=== PATIENT | male | born 1960 | race American Indian/Alaskan Native ===

== ENCOUNTER 2016-11-28 04:49 | Inpatient (IN) | payer MEDICARE, MEDICAID ==
[~2016-11-28] VITALS: Ht 182.9 cm; Wt 80.7 kg
[~2016-11-28 04:49] MED LIST: ACET325T14 PO; ALBU2.5V NPPB; ALPR0.254 PO; AMLO5TAB2 PO; ASPI-621 PO; ATOR80TA75 PO; BACI28.42 TP; BENZ1TAB61 PO; CLIN300C93 PO; DOCU100C8 PO; ESCI10TA PO; FAMO20TA7 PO; FOLI0.4T2 PO; GLIM1TAB PO; GLIP5TAB10 PO; HYDR-3138 PO; HYDR-3240 PO; INSU100C SQ-INSULIN; INSU100I18 SC; INSU100I29 SC; INSU100V8 SQ; LACT1CAP24 PO; LEVO500T33 PO; LISI2.5T PO; MAGN400T7 PO; METF10002 PO; METO-93 PO; METO25TA35 PO; METO25TA91 PO; MV-M1TAB3 PO; NICO1PAT5 TD; PANT40TA5 PO; PRAS10TA4 PO; SUCR1TAB26 PO; THIA100T27 PO; TRAZ50TA18 PO; ZIPR40CA2 PO; ZIPR40CA3 PO; bp med; insulin
[2016-11-28] MEDS ORDERED: NITROGLYCERIN SINGLE TAB 0.4 MG SL PRN (06:00)
[2016-11-28] MEDS ORDERED: ASPIRIN 81 MG TABLET CHEW PO ONE (06:00)
[2016-11-28] MEDS ORDERED: SODIUM CHLORIDE FLUSH 10ML SYR IVF ONE (06:00)
[2016-11-28] MEDS ORDERED: NITROGLYCERIN SINGLE TAB 0.4 MG SL ONE (06:20)
[2016-11-28] MEDS ORDERED: ASPIRIN 81 MG TABLET CHEW ONE (06:21)
[2016-11-28 06:40] LABS: BLOOD UREA NITROGEN 11 mg/dL (7-18)
[2016-11-28 06:47] LABS: ASPARTATE AMINO TRANSFERASE 19 U/L (15-37)
[2016-11-28] MEDS ORDERED: SODIUM CHLORIDE FLUSH 10ML SYR IVF PRN (07:30)
[2016-11-28] MEDS ORDERED: MORPHINE SULFATE 4 MG/ML, 1ML IVPush PRN (08:00)
[2016-11-28] MEDS ORDERED: LORazepam 2 MG/ML, 1ML IVPush PRN (08:00)
[2016-11-28] MEDS ORDERED: ONDANSETRON 2MG/ML, 2ML IVP PRN (08:00)
[2016-11-28] MEDS ORDERED: ENOXAPARIN 40 MG/0.4 ML ONE (08:04)
[2016-11-28] MEDS: ENOXAPARIN 40 MG/0.4 ML SQ SCH (08:07)
[2016-11-28] MEDS: INSULIN DETEMIR 100 UNITS/ML, PEN SQ-INSULIN SCH ×2 (08:30→23:42)
[2016-11-28 08:49] LABS: IS PT STATUS REG ER OR PRE ER? YES
[2016-11-28] MEDS ORDERED: FAMOTIDINE 20 MG TABLET PO SCH (09:00)
[2016-11-28] MEDS: BENZTROPINE 1 MG TABLET PO SCH ×2 (09:00→21:00)
[2016-11-28] MEDS: CITALOPRAM 10 MG TABLET PO SCH (10:11)
[2016-11-28] MEDS: MULTIVITAMINS/MINERALS TABLET PO SCH (10:13)
[2016-11-28] MEDS: ASPIRIN 81 MG TABLET EC PO SCH (10:13)
[2016-11-28] MEDS: FAMOTIDINE 20 MG TABLET PO SCH ×2 (10:13→23:37)
[2016-11-28] MEDS: ZIPRASIDONE 40MG CAPSULE PO SCH ×2 (10:14→23:37)
[2016-11-28] MEDS: DOCUSATE 100 MG CAPSULE PO SCH ×2 (10:14→23:08)
[2016-11-28] MEDS: THIAMINE 100MG TABLET PO SCH (10:15)
[2016-11-28] MEDS: MAGNESIUM OXIDE 400 MG TABLET PO SCH (10:18)
[2016-11-28] MEDS: FOLIC ACID 1 MG TABLET PO SCH (10:18)
[2016-11-28] MEDS: AMLODIPINE 5 MG TABLET PO SCH (10:19)
[2016-11-28] MEDS: LISINOPRIL 5 MG TABLET PO SCH (10:20)
[2016-11-28] MEDS: METOPROLOL SUCCINATE 50 MG TAB.ER.24H PO SCH (10:21)
[2016-11-28] MEDS: PRASUGREL 10 MG TABLET PO SCH (10:22)
[2016-11-28 12:18] VITALS: BP 150/84
[2016-11-28] MEDS: INSULIN ASPART 100 UNITS/ML, PEN SQ-INSULIN SCH ×3 (13:00→23:39)
[2016-11-28 14:24] LABS: IS PT STATUS REG ER OR PRE ER? NO
[2016-11-28 18:27] VITALS: BP 158/92
[2016-11-28 19:48] LABS: DAU SCREEN DISCLAIMER
[2016-11-28] MEDS: ATORVASTATIN 80 MG TABLET PO SCH (23:07)
[2016-11-28] MEDS: TRAZODONE 50MG TABLET PO SCH (23:08)
[2016-11-28] MEDS: SODIUM CHLORIDE FLUSH 10ML SYR IVF SCH ×2 (23:08→23:38)
[2016-11-29 01:33] VITALS: BP 131/81
[2016-11-29 04:56] LABS: HEMOGLOBIN 15.8 g/dL (13.7-18.0)
[2016-11-29 05:22] LABS: BLOOD UREA NITROGEN 15 mg/dL (7-18)
[2016-11-29] MEDS: INSULIN ASPART 100 UNITS/ML, PEN SQ-INSULIN SCH ×4 (07:00→21:00)
[2016-11-29 07:09] VITALS: BP 134/85
[2016-11-29] MEDS: INSULIN DETEMIR 100 UNITS/ML, PEN SQ-INSULIN SCH ×2 (08:30→20:30)
[2016-11-29] MEDS: MAGNESIUM OXIDE 400 MG TABLET PO SCH (09:19)
[2016-11-29] MEDS: MULTIVITAMINS/MINERALS TABLET PO SCH (09:20)
[2016-11-29] MEDS: METOPROLOL SUCCINATE 50 MG TAB.ER.24H PO SCH (09:20)
[2016-11-29] MEDS: FOLIC ACID 1 MG TABLET PO SCH (09:21)
[2016-11-29] MEDS: HYDROcodone/APAP 5/325 TABLET PO PRN ×3 (09:21→22:09)
[2016-11-29] MEDS: BENZTROPINE 1 MG TABLET PO SCH ×2 (09:22→22:08)
[2016-11-29] MEDS: DOCUSATE 100 MG CAPSULE PO SCH ×2 (09:23→21:36)
[2016-11-29] MEDS: CITALOPRAM 10 MG TABLET PO SCH (09:24)
[2016-11-29] MEDS: AMLODIPINE 5 MG TABLET PO SCH (09:24)
[2016-11-29] MEDS: FAMOTIDINE 20 MG TABLET PO SCH ×2 (09:24→21:37)
[2016-11-29] MEDS: ZIPRASIDONE 40MG CAPSULE PO SCH ×2 (09:24→21:37)
[2016-11-29] MEDS: THIAMINE 100MG TABLET PO SCH (09:25)
[2016-11-29] MEDS: LISINOPRIL 5 MG TABLET PO SCH (09:26)
[2016-11-29] MEDS: PRASUGREL 10 MG TABLET PO SCH (09:27)
[2016-11-29] MEDS: ENOXAPARIN 40 MG/0.4 ML SQ SCH (09:28)
[2016-11-29] MEDS: SODIUM CHLORIDE FLUSH 10ML SYR IVF SCH ×2 (09:28→21:36)
[2016-11-29] MEDS: ASPIRIN 81 MG TABLET EC PO SCH (09:28)
[2016-11-29 16:10] VITALS: BP 111/73
[2016-11-29 18:50] VITALS: BP 121/76
[2016-11-29 19:43] VITALS: BP 122/87
[2016-11-29] MEDS: TRAZODONE 50MG TABLET PO SCH (21:36)
[2016-11-29] MEDS: ATORVASTATIN 80 MG TABLET PO SCH (21:37)
[2016-11-30 02:13] VITALS: BP 115/74
[2016-11-30 05:31] LABS: HEMOGLOBIN 15.5 g/dL (13.7-18.0)
[2016-11-30 05:43] LABS: BLOOD UREA NITROGEN 14 mg/dL (7-18)
[2016-11-30] MEDS: HYDROcodone/APAP 5/325 TABLET PO PRN ×4 (06:22→23:28)
[2016-11-30 07:27] VITALS: BP 126/76
[2016-11-30] MEDS: INSULIN ASPART 100 UNITS/ML, PEN SQ-INSULIN SCH ×4 (08:26→21:00)
[2016-11-30] MEDS: SODIUM CHLORIDE FLUSH 10ML SYR IVF SCH ×2 (08:27→21:58)
[2016-11-30] MEDS ORDERED: REGADENOSON 0.4 MG/5 ML SYRINGE ONE (08:27)
[2016-11-30] MEDS: INSULIN DETEMIR 100 UNITS/ML, PEN SQ-INSULIN SCH ×2 (08:27→20:30)
[2016-11-30] MEDS: FOLIC ACID 1 MG TABLET PO SCH (08:28)
[2016-11-30] MEDS: MULTIVITAMINS/MINERALS TABLET PO SCH (08:28)
[2016-11-30] MEDS: MAGNESIUM OXIDE 400 MG TABLET PO SCH (08:28)
[2016-11-30] MEDS: CITALOPRAM 10 MG TABLET PO SCH (08:29)
[2016-11-30] MEDS: DOCUSATE 100 MG CAPSULE PO SCH ×2 (08:29→21:59)
[2016-11-30] MEDS: METOPROLOL SUCCINATE 50 MG TAB.ER.24H PO SCH (08:29)
[2016-11-30] MEDS: AMLODIPINE 5 MG TABLET PO SCH (08:30)
[2016-11-30] MEDS: FAMOTIDINE 20 MG TABLET PO SCH ×2 (08:30→21:59)
[2016-11-30] MEDS: ZIPRASIDONE 40MG CAPSULE PO SCH ×2 (08:30→21:59)
[2016-11-30] MEDS: THIAMINE 100MG TABLET PO SCH (08:30)
[2016-11-30] MEDS: LISINOPRIL 5 MG TABLET PO SCH (08:31)
[2016-11-30] MEDS: BENZTROPINE 1 MG TABLET PO SCH ×2 (09:00→21:00)
[2016-11-30] MEDS: ASPIRIN 81 MG TABLET EC PO SCH (09:39)
[2016-11-30] MEDS: ENOXAPARIN 40 MG/0.4 ML SQ SCH (09:41)
[2016-11-30] MEDS: PRASUGREL 10 MG TABLET PO SCH (09:43)
[2016-11-30 13:06] VITALS: BP 130/82
[2016-11-30] MEDS ORDERED: SODIUM CHLORIDE 0.9% 1,000 ML IV ONE (13:42)
[2016-11-30 18:22] VITALS: BP 145/79
[2016-11-30] MEDS: TRAZODONE 50MG TABLET PO SCH (21:59)
[2016-11-30] MEDS: ATORVASTATIN 80 MG TABLET PO SCH (21:59)
[2016-12-01 02:05] VITALS: BP 131/81
[2016-12-01 06:33] LABS: BLOOD UREA NITROGEN 16 mg/dL (7-18)
[2016-12-01 06:35] LABS: HEMOGLOBIN 15.9 g/dL (13.7-18.0)
[2016-12-01] MEDS: INSULIN DETEMIR 100 UNITS/ML, PEN SQ-INSULIN SCH ×2 (08:30→20:30)
[2016-12-01 08:34] VITALS: BP 120/80
[2016-12-01] MEDS: INSULIN ASPART 100 UNITS/ML, PEN SQ-INSULIN SCH ×4 (09:30→21:00)
[2016-12-01] MEDS: ENOXAPARIN 40 MG/0.4 ML SQ SCH (09:31)
[2016-12-01] MEDS: BENZTROPINE 1 MG TABLET PO SCH ×2 (09:51→21:00)
[2016-12-01] MEDS: CITALOPRAM 10 MG TABLET PO SCH (09:51)
[2016-12-01] MEDS: HYDROcodone/APAP 5/325 TABLET PO PRN ×2 (09:51→14:22)
[2016-12-01] MEDS: SODIUM CHLORIDE FLUSH 10ML SYR IVF SCH ×2 (09:51→20:59)
[2016-12-01] MEDS: FOLIC ACID 1 MG TABLET PO SCH (09:52)
[2016-12-01] MEDS: THIAMINE 100MG TABLET PO SCH (09:52)
[2016-12-01] MEDS: AMLODIPINE 5 MG TABLET PO SCH (09:52)
[2016-12-01] MEDS: FAMOTIDINE 20 MG TABLET PO SCH ×2 (09:52→21:00)
[2016-12-01] MEDS: DOCUSATE 100 MG CAPSULE PO SCH ×2 (09:52→21:00)
[2016-12-01] MEDS: MAGNESIUM OXIDE 400 MG TABLET PO SCH (09:52)
[2016-12-01] MEDS: METOPROLOL SUCCINATE 50 MG TAB.ER.24H PO SCH (09:52)
[2016-12-01] MEDS: LISINOPRIL 5 MG TABLET PO SCH (09:52)
[2016-12-01] MEDS: PRASUGREL 10 MG TABLET PO SCH (09:53)
[2016-12-01] MEDS: ZIPRASIDONE 40MG CAPSULE PO SCH ×2 (09:53→21:00)
[2016-12-01] MEDS: ASPIRIN 81 MG TABLET EC PO SCH (09:53)
[2016-12-01] MEDS: MULTIVITAMINS/MINERALS TABLET PO SCH (09:56)
[2016-12-01 13:42] VITALS: BP 107/63
[2016-12-01] MEDS ORDERED: FENTANYL PF 100 MCG/2ML ONE (15:55)
[2016-12-01] MEDS ORDERED: MIDAZOLAM 1 MG/ML, 5ML ONE (15:55)
[2016-12-01] MEDS ORDERED: DIPHENHYDRAMINE 50 MG/ML, 1ML ONE (15:55)
[2016-12-01] MEDS ORDERED: PRASUGREL 10 MG TABLET ONE (15:56)
[2016-12-01] MEDS ORDERED: BIVALIRUDIN 250 MG ONE (15:56)
[2016-12-01] MEDS ORDERED: HEPARIN 1,000 UNITS/ML, 10ML ONE (15:56)
[2016-12-01] MEDS ORDERED: LIDOCAINE 2%, 20ML ONE (15:56)
[2016-12-01] MEDS ORDERED: VERAPAMIL 2.5 MG/ML, 2ML ONE (15:56)
[2016-12-01 20:00] VITALS: BP 122/85
[2016-12-01] MEDS: TRAZODONE 50MG TABLET PO SCH (20:59)
[2016-12-01] MEDS: ATORVASTATIN 80 MG TABLET PO SCH (21:00)
[2016-12-01 23:17] VITALS: BP 91/71
[2016-12-02 02:27] VITALS: BP 101/71
[2016-12-02 06:03] LABS: HEMOGLOBIN 16.6 g/dL (13.7-18.0)
[2016-12-02 06:18] LABS: BLOOD UREA NITROGEN 26 mg/dL (7-18)
[2016-12-02 06:53] VITALS: BP 112/78
[2016-12-02] MEDS: INSULIN ASPART 100 UNITS/ML, PEN SQ-INSULIN SCH (07:22)
[2016-12-02] MEDS: INSULIN DETEMIR 100 UNITS/ML, PEN SQ-INSULIN SCH (07:44)
[2016-12-02 08:54] VITALS: BP 102/62
[2016-12-02] MEDS: SODIUM CHLORIDE FLUSH 10ML SYR IVF SCH (08:55)
[2016-12-02] MEDS: PRASUGREL 10 MG TABLET PO SCH (08:55)
[2016-12-02] MEDS: HYDROcodone/APAP 5/325 TABLET PO PRN (08:55)
[2016-12-02] MEDS: ENOXAPARIN 40 MG/0.4 ML SQ SCH (08:55)
[2016-12-02] MEDS: BENZTROPINE 1 MG TABLET PO SCH (08:56)
[2016-12-02] MEDS: METOPROLOL SUCCINATE 50 MG TAB.ER.24H PO SCH (08:57)
[2016-12-02] MEDS: MAGNESIUM OXIDE 400 MG TABLET PO SCH (08:57)
[2016-12-02] MEDS: ASPIRIN 81 MG TABLET EC PO SCH (08:57)
[2016-12-02] MEDS: DOCUSATE 100 MG CAPSULE PO SCH (08:57)
[2016-12-02] MEDS: FOLIC ACID 1 MG TABLET PO SCH (08:57)
[2016-12-02] MEDS: THIAMINE 100MG TABLET PO SCH (08:57)
[2016-12-02] MEDS: LISINOPRIL 5 MG TABLET PO SCH (08:57)
[2016-12-02] MEDS: AMLODIPINE 5 MG TABLET PO SCH (08:58)
[2016-12-02] MEDS: ZIPRASIDONE 40MG CAPSULE PO SCH (08:58)
[2016-12-02] MEDS: MULTIVITAMINS/MINERALS TABLET PO SCH (08:58)
[2016-12-02] MEDS: FAMOTIDINE 20 MG TABLET PO SCH (08:58)
[2016-12-02] MEDS: CITALOPRAM 10 MG TABLET PO SCH (09:05)
[2016-12-02] MEDS ORDERED: GLIP5TAB10 PO (10:50)
[2016-12-02] MEDS ORDERED: BENZ1TAB61 PO (10:50)
[2016-12-02] MEDS ORDERED: METO-93 PO (10:50)
[2016-12-02] MEDS ORDERED: AMLO5TAB2 PO (10:50)
[2016-12-02] MEDS ORDERED: TRAZ50TA18 PO (10:50)
[2016-12-02] MEDS ORDERED: ZIPR40CA3 PO (10:50)
[2016-12-02] MEDS ORDERED: ESCI10TA PO (10:50)
[2016-12-02] MEDS ORDERED: LISI2.5T PO (10:50)
[2016-12-02] MEDS ORDERED: ATOR80TA75 PO (10:50)
[2016-12-02] MEDS ORDERED: ASPI-621 PO (10:50)
[2016-12-02] MEDS ORDERED: INSU100V8 SQ (10:50)
[2016-12-02] MEDS ORDERED: PRAS10TA4 PO (10:50)
== END 2016-12-02 12:15 | disposition home or self-care (01) | DRG 287 ==
LOC: ED 07:22 → EDIP 07:23 → ED 07:39 → 5SO 11:56 → DCLOUNGE 12-02 11:19
PROVIDERS: ADMIT Internal Medicine; ATTEND Internal Medicine
PROC: 4A023N7 Measurement of Cardiac Sampling and Pressure, Left Heart, Percutaneous Approach (ICD-10-PCS; principal; 2016-12-01)
PROC: B2111ZZ Fluoroscopy of Multiple Coronary Arteries using Low Osmolar Contrast (ICD-10-PCS; 2016-12-01)
PROC: B2151ZZ Fluoroscopy of Left Heart using Low Osmolar Contrast (ICD-10-PCS; 2016-12-01)
DX: I25.110 Atherosclerotic heart disease of native coronary artery with unstable angina pectoris (principal); R45.851 Suicidal ideations; I10 Essential (primary) hypertension; E11.9 Type 2 diabetes mellitus without complications; D72.829 Elevated white blood cell count, unspecified; F17.210 Nicotine dependence, cigarettes, uncomplicated; E78.00 Pure hypercholesterolemia, unspecified; F10.20 Alcohol dependence, uncomplicated; F32.9 Major depressive disorder, single episode, unspecified; J45.909 Unspecified asthma, uncomplicated; E78.5 Hyperlipidemia, unspecified; F20.9 Schizophrenia, unspecified; I11.9 Hypertensive heart disease without heart failure; Z91.19 Patient's noncompliance with other medical treatment and regimen; Z59.0 Homelessness; Z95.5 Presence of coronary angioplasty implant and graft; Z88.0 Allergy status to penicillin; Z91.14 Patient's other noncompliance with medication regimen
CPT/HCPCS: 36415; 71010; 78452; 80048; 80053; 80061; 80307; 82962; 83036; 83880; 84443; 84484; 85025; 85610; 85730; 93005; 93017; 93306; 93458; 99285; C1760; C1894; J0583; J1644; J1650; J1815; J2250; J2785; J3010; J3490; A9502; C9898; J1200; J7030; Q9967

== ENCOUNTER 2017-01-25 03:20 | Emergency (ER) | payer MEDICAID, MEDICARE ==
[2017-01-25] MEDS ORDERED: SODIUM CHLORIDE FLUSH 10ML SYR IVF ONE (04:00)
[2017-01-25] MEDS ORDERED: ASPIRIN 81 MG TABLET CHEW PO ONE (04:00)
[2017-01-25] MEDS ORDERED: ASPIRIN 81 MG TABLET CHEW ONE (04:21)
[2017-01-25] MEDS ORDERED: SODIUM CHLORIDE 0.9% 1,000ML IVBOLUS ONE (04:30)
[2017-01-25 05:00] LABS: BLOOD UREA NITROGEN 15 mg/dL (7-18)
[2017-01-25 05:05] LABS: ASPARTATE AMINO TRANSFERASE 21 U/L (15-37)
[2017-01-25 05:06] LABS: IS PT STATUS REG ER OR PRE ER? YES
[2017-01-25 06:01] VITALS: BP 141/87
== END 2017-01-25 06:20 | disposition home or self-care (01) ==
LOC: ED 05:27
DX: I10 Essential (primary) hypertension (principal); R07.89 Other chest pain; R05 Cough; R73.9 Hyperglycemia, unspecified; E78.00 Pure hypercholesterolemia, unspecified; I11.9 Hypertensive heart disease without heart failure; J45.909 Unspecified asthma, uncomplicated; M54.5 Low back pain; G89.29 Other chronic pain; E11.40 Type 2 diabetes mellitus with diabetic neuropathy, unspecified; F10.20 Alcohol dependence, uncomplicated
CPT/HCPCS: 36415; 71010; 80053; 80307; 81001; 82010; 84484; 85025; 93005; 96360; 99285; J7030

== ENCOUNTER 2017-07-05 22:07 | Emergency (ER) | payer MEDICARE ==
[~2017-07-05] VITALS: Ht 170.2 cm; Wt 86.2 kg
[~2017-07-05 22:07] MED LIST changes: +ATOR-2 PO; -ATOR80TA75 PO; +CLIN300C8 PO; -CLIN300C93 PO; +DOCU100C33 PO; -DOCU100C8 PO; -HYDR-3138 PO; +HYDR-3237 PO; -LEVO500T33 PO; +LEVO500T47 PO; +NICO-487 TD; -NICO1PAT5 TD; -SUCR1TAB26 PO; +SUCR1TAB33 PO
[2017-07-05 22:20] VITALS: BP 137/82
== END 2017-07-06 01:06 | disposition home or self-care (01) ==
LOC: ED 22:42
DX: R45.851 Suicidal ideations (principal); F43.22 Adjustment disorder with anxiety; J45.909 Unspecified asthma, uncomplicated; I10 Essential (primary) hypertension; F32.9 Major depressive disorder, single episode, unspecified; F20.9 Schizophrenia, unspecified; F17.200 Nicotine dependence, unspecified, uncomplicated; F10.20 Alcohol dependence, uncomplicated; E78.00 Pure hypercholesterolemia, unspecified; G89.29 Other chronic pain
CPT/HCPCS: 99284

== ENCOUNTER 2017-08-31 10:57 | Emergency (ER) | payer MEDICARE ==
[~2017-08-31] VITALS: Ht 170.2 cm; Wt 84.7 kg
[2017-08-31 11:06] VITALS: BP 143/83
== END 2017-08-31 13:20 | disposition home or self-care (01) ==
LOC: ED 13:14
DX: M26.622 Arthralgia of left temporomandibular joint (principal); E11.65 Type 2 diabetes mellitus with hyperglycemia; E78.00 Pure hypercholesterolemia, unspecified; I10 Essential (primary) hypertension; F10.20 Alcohol dependence, uncomplicated
CPT/HCPCS: 70100; 99284

== ENCOUNTER 2017-10-11 09:13 | Emergency (ER) | payer MEDICARE ==
[~2017-10-11] VITALS: Ht 170.2 cm; Wt 79.3 kg
[2017-10-11 09:18] VITALS: BP 124/79
[2017-10-11] MEDS ORDERED: KETOROLAC 30 MG/1 ML ONE (09:47)
[2017-10-11] MEDS ORDERED: KETOROLAC 30 MG/1 ML IM ONE (10:00)
== END 2017-10-11 10:28 | disposition home or self-care (01) ==
LOC: ED 10:21
DX: M26.622 Arthralgia of left temporomandibular joint (principal); E11.65 Type 2 diabetes mellitus with hyperglycemia; E78.00 Pure hypercholesterolemia, unspecified; I10 Essential (primary) hypertension; G89.29 Other chronic pain
CPT/HCPCS: 82962; 96372; 99283; J1885

== ENCOUNTER 2018-01-19 07:43 | Inpatient (IN) | payer MEDICARE, MEDICAID ==
[~2018-01-19] VITALS: Ht 182.9 cm; Wt 81.6 kg
[2018-01-19 08:30] LABS: BASOPHILS # (AUTO) 0.04 x10^3/uL (0-0.1); BASOPHILS % (AUTO) 1 % (0-1); EOSINOPHILS # (AUTO) 0.11 x10^3/uL (0-0.4); EOSINOPHILS % (AUTO) 1 % (1-7); LYMPHOCYTES # (AUTO) 1.69 x10^3/uL (1-3.4); LYMPHOCYTES % (AUTO) 19 % (22-44); MD NO; MEAN CORPUSCULAR HEMOGLOBIN 31.8 pg (27.5-34.5); MEAN CORPUSCULAR VOLUME 93.7 fL (81-97); MEAN PLATELET VOLUME 6.9 fL (7.4-10.4); MONOCYTES # (AUTO) 0.49 x10^3/uL (0.2-0.8); MONOCYTES % (AUTO) 5 % (2-9); NEUTROPHILS # (AUTO) 6.76 x10^3/uL (1.8-6.8); NEUTROPHILS % (AUTO) 74 % (42-75); PLATELET COUNT 294 x10^3/uL (130-400); RED BLOOD COUNT 4.95 x10^6/uL (4.38-5.82)
[2018-01-19] MEDS ORDERED: ASPIRIN 81 MG TABLET CHEW PO ONE (08:30)
[2018-01-19 08:36] LABS: ALANINE AMINOTRANSFERASE 31 U/L (12-78); ALBUMIN 3.5 g/dL (3.4-5.0); ANION GAP 8 mmol/L (5-15); CALCIUM 8.4 mg/dL (8.5-10.1); CHLORIDE 103 mmol/L (98-107)
[2018-01-19 08:40] LABS: ALKALINE PHOSPHATASE 101 U/L (45-117); BILIRUBIN,TOTAL 0.5 mg/dL (0.2-1.0); TOTAL PROTEIN 7.1 g/dL (6.4-8.2); TROPONIN I < 0.015 ng/mL (0.000-0.045)
[2018-01-19] MEDS ORDERED: ASPIRIN 81 MG TABLET CHEW ONE (08:51)
[2018-01-19] MEDS ORDERED: NITROGLYCERIN OINT 2%, 1GM TP ONE ×2 (11:12→11:30)
[2018-01-19 11:56] LABS: INTERNATIONAL NORMALIZED RATIO 0.93 (0.93-1.1); PROTHROMBIN TIME 9.7 Seconds (9.6-11.5)
[2018-01-19] MEDS ORDERED: DEXTROSE 50%, 50ML SYRINGE IVPush PRN (12:00)
[2018-01-19] MEDS ORDERED: GLUCAGON 1 MG IM PRN (12:00)
[2018-01-19] MEDS ORDERED: ONDANSETRON 2MG/ML, 2ML IVPush PRN (12:00)
[2018-01-19] MEDS ORDERED: NITROGLYCERIN 0.4 MG BOTTLE (25 TABS) SL PRN (12:00)
[2018-01-19] MEDS ORDERED: DEXTROSE 4 GM TAB.CHEW PO PRN (12:00)
[2018-01-19] MEDS ORDERED: LABETALOL 5MG/ML, 20ML IVPush PRN (12:00)
[2018-01-19 14:34] LABS: TROPONIN I < 0.015 ng/mL (0.000-0.045)
[2018-01-19] MEDS: NICOTINE 14MG/24 HR PATCH.TD24 TD SCH (14:38)
[2018-01-19] MEDS: HEPARIN 5,000 UNITS/ML, 1ML SQ SCH ×2 (14:39→22:56)
[2018-01-19] MEDS: SODIUM CHLORIDE 0.9% 1,000 ML IV SCH (14:41)
[2018-01-19] MEDS: INSULIN LISPRO 100 UNITS/ML, PEN SQ-INSULIN SCH ×2 (17:03→21:49)
[2018-01-19 18:38] VITALS: BP 138/84
[2018-01-19 20:29] LABS: TROPONIN I < 0.015 ng/mL (0.000-0.045)
[2018-01-19] MEDS: DOCUSATE 100 MG CAPSULE PO SCH (20:56)
[2018-01-19] MEDS: TRAZODONE 50MG TABLET PO SCH (20:56)
[2018-01-19] MEDS: FAMOTIDINE 20 MG TABLET PO SCH (20:57)
[2018-01-19] MEDS: ATORVASTATIN 80 MG TABLET PO SCH (20:57)
[2018-01-19] MEDS: SODIUM CHLORIDE FLUSH 10ML SYR IVF SCH (20:57)
[2018-01-19] MEDS: INSULIN GLARGINE 100 UNITS/ML, PEN SQ-INSULIN SCH (21:49)
[2018-01-19] MEDS: ZIPRASIDONE 40MG CAPSULE PO SCH (21:49)
[2018-01-20 00:55] VITALS: BP 121/80
[2018-01-20 02:33] LABS: TROPONIN I < 0.015 ng/mL (0.000-0.045)
[2018-01-20 05:18] LABS: BASOPHILS # (AUTO) 0.05 x10^3/uL (0-0.1); BASOPHILS % (AUTO) 1 % (0-1); EOSINOPHILS # (AUTO) 0.26 x10^3/uL (0-0.4); EOSINOPHILS % (AUTO) 4 % (1-7); LYMPHOCYTES # (AUTO) 2.57 x10^3/uL (1-3.4); LYMPHOCYTES % (AUTO) 35 % (22-44); MD NO; MEAN CORPUSCULAR HEMOGLOBIN 31.9 pg (27.5-34.5); MEAN CORPUSCULAR HGB CONC 33.5 g/dL (33.2-36.2); MEAN CORPUSCULAR VOLUME 95.1 fL (81-97); MEAN PLATELET VOLUME 6.7 fL (7.4-10.4); MONOCYTES # (AUTO) 0.64 x10^3/uL (0.2-0.8); MONOCYTES % (AUTO) 9 % (2-9); NEUTROPHILS # (AUTO) 3.93 x10^3/uL (1.8-6.8); NEUTROPHILS % (AUTO) 53 % (42-75); PLATELET COUNT 293 x10^3/uL (130-400); RED BLOOD COUNT 4.78 x10^6/uL (4.38-5.82); RED CELL DISTRIBUTION WIDTH 13.7 % (9.4-14.8)
[2018-01-20 05:45] LABS: ALBUMIN 3.1 g/dL (3.4-5.0); ANION GAP 8 mmol/L (5-15); CALCIUM 8.1 mg/dL (8.5-10.1); CHLORIDE 108 mmol/L (98-107)
[2018-01-20 05:51] LABS: ALANINE AMINOTRANSFERASE 26 U/L (12-78); ALKALINE PHOSPHATASE 88 U/L (45-117); BILIRUBIN,TOTAL 0.5 mg/dL (0.2-1.0); CHOL/HDL RATIO 3.1; CHOLESTEROL, TOTAL 95 mg/dL (140-239); CREATININE 0.81 mg/dL (0.7-1.3); HDL CHOL % 33 % (26-37); HDL CHOLESTEROL (DIRECT) 31 mg/dL (40-60); LDL CHOLESTEROL,CALCULATED 37 mg/dL (54-169); LDL/HDL RATIO 1.2 (0.5-3.0); TOTAL PROTEIN 6.5 g/dL (6.4-8.2); TRIGLYCERIDES 133 mg/dL (50-200); VLDL CHOLESTEROL 27 mg/dL (0-25)
[2018-01-20] MEDS: HEPARIN 5,000 UNITS/ML, 1ML SQ SCH ×3 (06:43→21:19)
[2018-01-20] MEDS: INSULIN LISPRO 100 UNITS/ML, PEN SQ-INSULIN SCH ×4 (07:00→21:51)
[2018-01-20 08:26] VITALS: BP 117/20
[2018-01-20] MEDS: DOCUSATE 100 MG CAPSULE PO SCH ×2 (09:00→21:19)
[2018-01-20] MEDS: SODIUM CHLORIDE 0.9% 1,000 ML IV SCH (09:49)
[2018-01-20] MEDS: ZIPRASIDONE 40MG CAPSULE PO SCH ×2 (09:49→21:19)
[2018-01-20] MEDS: AMLODIPINE 5 MG TABLET PO SCH (09:50)
[2018-01-20] MEDS: SODIUM CHLORIDE FLUSH 10ML SYR IVF SCH ×2 (09:50→21:19)
[2018-01-20] MEDS: CITALOPRAM 10 MG TABLET PO SCH (09:50)
[2018-01-20] MEDS: FAMOTIDINE 20 MG TABLET PO SCH ×2 (09:50→21:19)
[2018-01-20] MEDS: MAGNESIUM OXIDE 400 MG TABLET PO SCH (09:50)
[2018-01-20] MEDS: ASPIRIN 81 MG TABLET EC PO SCH (09:50)
[2018-01-20] MEDS: NICOTINE 14MG/24 HR PATCH.TD24 TD SCH (11:28)
[2018-01-20 14:30] VITALS: BP 118/79
[2018-01-20 20:40] VITALS: BP 136/85
[2018-01-20] MEDS: ATORVASTATIN 80 MG TABLET PO SCH (21:19)
[2018-01-20] MEDS: TRAZODONE 50MG TABLET PO SCH (21:20)
[2018-01-20] MEDS: INSULIN GLARGINE 100 UNITS/ML, PEN SQ-INSULIN SCH (21:52)
[2018-01-21 00:46] VITALS: BP 131/84
[2018-01-21] MEDS: HEPARIN 5,000 UNITS/ML, 1ML SQ SCH ×3 (06:00→22:18)
[2018-01-21] MEDS: SODIUM CHLORIDE 0.9% 1,000 ML IV SCH ×2 (07:00→22:06)
[2018-01-21] MEDS: INSULIN LISPRO 100 UNITS/ML, PEN SQ-INSULIN SCH ×4 (07:00→22:18)
[2018-01-21] MEDS: DOCUSATE 100 MG CAPSULE PO SCH ×2 (08:11→22:03)
[2018-01-21] MEDS: AMLODIPINE 5 MG TABLET PO SCH (08:11)
[2018-01-21] MEDS: ASPIRIN 81 MG TABLET EC PO SCH (08:11)
[2018-01-21] MEDS: MAGNESIUM OXIDE 400 MG TABLET PO SCH (08:11)
[2018-01-21] MEDS: SODIUM CHLORIDE FLUSH 10ML SYR IVF SCH ×2 (08:12→22:03)
[2018-01-21] MEDS: ZIPRASIDONE 40MG CAPSULE PO SCH ×2 (08:12→22:03)
[2018-01-21] MEDS: CITALOPRAM 10 MG TABLET PO SCH (08:12)
[2018-01-21] MEDS: FAMOTIDINE 20 MG TABLET PO SCH ×2 (08:14→22:03)
[2018-01-21] MEDS ORDERED: REGADENOSON 0.4 MG/5 ML SYRINGE ONE (08:15)
[2018-01-21 09:00] VITALS: BP 132/81
[2018-01-21] MEDS: NICOTINE 14MG/24 HR PATCH.TD24 TD SCH (12:42)
[2018-01-21 14:13] VITALS: BP 129/85
[2018-01-21 19:42] VITALS: BP 144/82
[2018-01-21] MEDS: TRAZODONE 50MG TABLET PO SCH (22:03)
[2018-01-21] MEDS: ATORVASTATIN 80 MG TABLET PO SCH (22:03)
[2018-01-21] MEDS: INSULIN GLARGINE 100 UNITS/ML, PEN SQ-INSULIN SCH (22:18)
[2018-01-22 01:19] VITALS: BP 118/77
[2018-01-22] MEDS: HEPARIN 5,000 UNITS/ML, 1ML SQ SCH ×3 (06:05→21:52)
[2018-01-22] MEDS: INSULIN LISPRO 100 UNITS/ML, PEN SQ-INSULIN SCH ×4 (07:00→21:57)
[2018-01-22 07:49] VITALS: BP 118/81
[2018-01-22] MEDS: SODIUM CHLORIDE FLUSH 10ML SYR IVF SCH ×2 (09:00→21:49)
[2018-01-22] MEDS: MAGNESIUM OXIDE 400 MG TABLET PO SCH (09:31)
[2018-01-22] MEDS: AMLODIPINE 5 MG TABLET PO SCH (09:31)
[2018-01-22] MEDS: ASPIRIN 81 MG TABLET EC PO SCH (09:31)
[2018-01-22] MEDS: DOCUSATE 100 MG CAPSULE PO SCH ×2 (09:31→21:50)
[2018-01-22] MEDS: CITALOPRAM 10 MG TABLET PO SCH (09:31)
[2018-01-22] MEDS: ZIPRASIDONE 40MG CAPSULE PO SCH ×2 (09:31→21:49)
[2018-01-22] MEDS: FAMOTIDINE 20 MG TABLET PO SCH ×2 (09:31→21:50)
[2018-01-22] MEDS: NICOTINE 14MG/24 HR PATCH.TD24 TD SCH (12:57)
[2018-01-22] MEDS: LISINOPRIL 5 MG TABLET PO SCH (12:57)
[2018-01-22 13:35] VITALS: BP 110/74
[2018-01-22] MEDS: CARVEDILOL 3.125 MG TABLET PO SCH (16:49)
[2018-01-22 21:45] VITALS: BP 125/80
[2018-01-22] MEDS: TRAZODONE 50MG TABLET PO SCH (21:50)
[2018-01-22] MEDS: ATORVASTATIN 80 MG TABLET PO SCH (21:50)
[2018-01-22] MEDS: INSULIN GLARGINE 100 UNITS/ML, PEN SQ-INSULIN SCH (21:58)
[2018-01-22] MEDS: SODIUM CHLORIDE 0.9% 1,000 ML IV SCH (21:59)
[2018-01-23 03:40] VITALS: BP 110/76
[2018-01-23] MEDS: CARVEDILOL 3.125 MG TABLET PO SCH ×2 (06:24→17:45)
[2018-01-23] MEDS: HEPARIN 5,000 UNITS/ML, 1ML SQ SCH ×3 (06:25→21:19)
[2018-01-23] MEDS: INSULIN LISPRO 100 UNITS/ML, PEN SQ-INSULIN SCH ×4 (07:00→21:24)
[2018-01-23 08:31] VITALS: BP 115/79
[2018-01-23] MEDS: SODIUM CHLORIDE FLUSH 10ML SYR IVF SCH ×2 (09:20→21:20)
[2018-01-23] MEDS: FAMOTIDINE 20 MG TABLET PO SCH ×2 (09:21→21:20)
[2018-01-23] MEDS: DOCUSATE 100 MG CAPSULE PO SCH ×2 (09:21→21:20)
[2018-01-23] MEDS: ASPIRIN 81 MG TABLET EC PO SCH (09:21)
[2018-01-23] MEDS: CITALOPRAM 10 MG TABLET PO SCH (09:21)
[2018-01-23] MEDS: LISINOPRIL 5 MG TABLET PO SCH (09:22)
[2018-01-23] MEDS: AMLODIPINE 5 MG TABLET PO SCH (09:22)
[2018-01-23] MEDS: MAGNESIUM OXIDE 400 MG TABLET PO SCH (09:22)
[2018-01-23] MEDS: ZIPRASIDONE 40MG CAPSULE PO SCH ×2 (09:30→21:20)
[2018-01-23] MEDS: NICOTINE 14MG/24 HR PATCH.TD24 TD SCH (12:52)
[2018-01-23] MEDS: SODIUM CHLORIDE 0.9% 1,000 ML IV SCH (15:26)
[2018-01-23 15:55] VITALS: BP 112/77
[2018-01-23 20:02] VITALS: BP 115/81
[2018-01-23] MEDS: TRAZODONE 50MG TABLET PO SCH (21:19)
[2018-01-23] MEDS: ATORVASTATIN 80 MG TABLET PO SCH (21:20)
[2018-01-23] MEDS: INSULIN GLARGINE 100 UNITS/ML, PEN SQ-INSULIN SCH (21:25)
[2018-01-24 01:25] VITALS: BP 92/66
[2018-01-24] MEDS: HEPARIN 5,000 UNITS/ML, 1ML SQ SCH ×3 (05:47→20:30)
[2018-01-24] MEDS: CARVEDILOL 3.125 MG TABLET PO SCH ×2 (05:52→17:48)
[2018-01-24 05:53] VITALS: BP 109/76
[2018-01-24] MEDS: INSULIN LISPRO 100 UNITS/ML, PEN SQ-INSULIN SCH ×4 (07:00→20:30)
[2018-01-24 07:10] VITALS: BP 103/64
[2018-01-24] MEDS ORDERED: SODIUM CHLORIDE 0.9% 1,000 ML IV ONE (07:45)
[2018-01-24] MEDS: ASPIRIN 81 MG TABLET EC PO SCH (08:40)
[2018-01-24] MEDS: DOCUSATE 100 MG CAPSULE PO SCH ×2 (08:40→20:30)
[2018-01-24] MEDS: FAMOTIDINE 20 MG TABLET PO SCH ×2 (08:40→20:30)
[2018-01-24] MEDS: CITALOPRAM 10 MG TABLET PO SCH (08:41)
[2018-01-24] MEDS: AMLODIPINE 5 MG TABLET PO SCH (08:41)
[2018-01-24] MEDS: SODIUM CHLORIDE FLUSH 10ML SYR IVF SCH ×2 (08:42→20:34)
[2018-01-24] MEDS: MAGNESIUM OXIDE 400 MG TABLET PO SCH (08:45)
[2018-01-24] MEDS: LISINOPRIL 5 MG TABLET PO SCH (08:45)
[2018-01-24] MEDS: ZIPRASIDONE 40MG CAPSULE PO SCH ×2 (08:55→20:32)
[2018-01-24] MEDS: SODIUM CHLORIDE 0.9% 1,000 ML IV SCH (11:14)
[2018-01-24] MEDS: NICOTINE 14MG/24 HR PATCH.TD24 TD SCH (11:35)
[2018-01-24 13:30] VITALS: BP 112/68
[2018-01-24] MEDS ORDERED: TICAGRELOR 90 MG TABLET ONE (13:36)
[2018-01-24] MEDS ORDERED: VERAPAMIL 2.5 MG/ML, 2ML ONE (13:36)
[2018-01-24] MEDS ORDERED: FENTANYL PF 100 MCG/2ML ONE (13:36)
[2018-01-24] MEDS ORDERED: MIDAZOLAM 1 MG/ML, 5ML ONE (13:36)
[2018-01-24] MEDS ORDERED: HEPARIN 1,000 UNITS/ML, 10ML ONE (13:37)
[2018-01-24] MEDS ORDERED: BIVALIRUDIN 250 MG ONE (13:37)
[2018-01-24] MEDS ORDERED: LIDOCAINE 2%, 2ML ONE (13:37)
[2018-01-24 19:14] VITALS: BP 102/66
[2018-01-24] MEDS: ATORVASTATIN 80 MG TABLET PO SCH (20:29)
[2018-01-24] MEDS: INSULIN GLARGINE 100 UNITS/ML, PEN SQ-INSULIN SCH (20:31)
[2018-01-24] MEDS: TRAZODONE 50MG TABLET PO SCH (20:34)
[2018-01-25 01:35] VITALS: BP 116/82
[2018-01-25 05:38] VITALS: BP 112/74
[2018-01-25] MEDS: HEPARIN 5,000 UNITS/ML, 1ML SQ SCH (05:39)
[2018-01-25] MEDS: CARVEDILOL 3.125 MG TABLET PO SCH (05:39)
[2018-01-25] MEDS: INSULIN LISPRO 100 UNITS/ML, PEN SQ-INSULIN SCH ×2 (07:00→10:49)
[2018-01-25 07:11] LABS: ALBUMIN 3.2 g/dL (3.4-5.0); ANION GAP 9 mmol/L (5-15); CALCIUM 8.4 mg/dL (8.5-10.1); CHLORIDE 105 mmol/L (98-107); CREATININE 0.75 mg/dL (0.7-1.3)
[2018-01-25 07:50] VITALS: BP 105/74
[2018-01-25] MEDS: SODIUM CHLORIDE 0.9% 1,000 ML IV SCH (07:51)
[2018-01-25] MEDS ORDERED: CARV3.1212 PO (08:39)
[2018-01-25] MEDS ORDERED: AMLO5TAB2 PO (08:39)
[2018-01-25] MEDS ORDERED: CLOP75TA PO (08:39)
[2018-01-25] MEDS: MAGNESIUM OXIDE 400 MG TABLET PO SCH (08:42)
[2018-01-25] MEDS: DOCUSATE 100 MG CAPSULE PO SCH (08:42)
[2018-01-25] MEDS: ZIPRASIDONE 40MG CAPSULE PO SCH (08:42)
[2018-01-25] MEDS: CITALOPRAM 10 MG TABLET PO SCH (08:42)
[2018-01-25] MEDS: LISINOPRIL 5 MG TABLET PO SCH (08:43)
[2018-01-25] MEDS: FAMOTIDINE 20 MG TABLET PO SCH (08:43)
[2018-01-25] MEDS: AMLODIPINE 5 MG TABLET PO SCH (08:43)
[2018-01-25] MEDS: ASPIRIN 81 MG TABLET EC PO SCH (08:43)
[2018-01-25] MEDS: SODIUM CHLORIDE FLUSH 10ML SYR IVF SCH (08:44)
[2018-01-25] MEDS ORDERED: CLOPIDOGREL 75 MG TABLET PO SCH (09:00)
[2018-01-25] MEDS: NICOTINE 14MG/24 HR PATCH.TD24 TD SCH (10:45)
== END 2018-01-25 11:30 | disposition home or self-care (01) | DRG 287 ==
LOC: ED 10:11 → EDIP 11:01 → 5SO 13:05 → DCLOUNGE 01-25 11:30
PROVIDERS: ADMIT Internal Medicine; ATTEND Hospitalist
PROC: 4A023N7 Measurement of Cardiac Sampling and Pressure, Left Heart, Percutaneous Approach (ICD-10-PCS; principal; 2018-01-24)
PROC: B2151ZZ Fluoroscopy of Left Heart using Low Osmolar Contrast (ICD-10-PCS; 2018-01-24)
PROC: B2111ZZ Fluoroscopy of Multiple Coronary Arteries using Low Osmolar Contrast (ICD-10-PCS; 2018-01-24)
DX: I25.10 Atherosclerotic heart disease of native coronary artery without angina pectoris (principal); E11.40 Type 2 diabetes mellitus with diabetic neuropathy, unspecified; I25.82 Chronic total occlusion of coronary artery; E87.1 Hypo-osmolality and hyponatremia; F20.9 Schizophrenia, unspecified; F17.210 Nicotine dependence, cigarettes, uncomplicated; Z91.14 Patient's other noncompliance with medication regimen; E78.5 Hyperlipidemia, unspecified; F10.20 Alcohol dependence, uncomplicated; G89.29 Other chronic pain; M54.9 Dorsalgia, unspecified; E78.00 Pure hypercholesterolemia, unspecified; F32.9 Major depressive disorder, single episode, unspecified; F41.1 Generalized anxiety disorder; I10 Essential (primary) hypertension; J45.909 Unspecified asthma, uncomplicated; Z66 Do not resuscitate; Z79.82 Long term (current) use of aspirin; Z88.0 Allergy status to penicillin; Z88.2 Allergy status to sulfonamides; Z95.5 Presence of coronary angioplasty implant and graft
CPT/HCPCS: 36415; 71045; 78452; 80048; 80053; 80061; 82040; 82962; 83735; 84484; 85025; 85610; 85730; 93005; 93017; 93458; 99156; 99285; C1769; C1894; J0583; J1644; J2250; J2785; J3010; J3490; A9502; C9898; J1815; J7030; Q9967

== ENCOUNTER 2019-04-18 12:27 | Emergency (ER) | payer MEDICAID, MEDICARE ==
[~2019-04-18] VITALS: Ht 162.6 cm; Wt 75.0 kg
[~2019-04-18 12:27] MED LIST changes: +AMLO-150 PO; -AMLO5TAB2 PO; -ASPI-621 PO; +ASPI81TA45 PO; +CARV3.1212 PO; +CLOP75TA PO; -TRAZ50TA18 PO; +TRAZ50TA66 PO
--- NOTE | 2019-04-18 12:45 | NUR ---
JAMIN RN NOTE: PATIENT IS CHANGED INTO GOWN. BELONGINGS COLLECTED AND COLLECTED AND PLACED IN LOCKER. PATIENT IS AWARE OF UA NEED. SITTER AT BS.
--- NOTE | 2019-04-18 13:14 | NUR ---
pt resting in room. sw assessment completed. pt now mildly agitated but resting comfortably in gurney. no needs expressed. aware of need for ua.
[2019-04-18 13:24] LABS: BASOPHILS # (AUTO) 0.03 x10^3/uL (0-0.1); BASOPHILS % (AUTO) 0 % (0-1); EOSINOPHILS # (AUTO) 0.19 x10^3/uL (0-0.4); EOSINOPHILS % (AUTO) 3 % (1-7); LYMPHOCYTES # (AUTO) 2.13 x10^3/uL (1-3.4); LYMPHOCYTES % (AUTO) 30 % (22-44); MD NO; MEAN CORPUSCULAR HEMOGLOBIN 32.8 pg (27.5-34.5); MEAN CORPUSCULAR HGB CONC 33.6 g/dL (33.2-36.2); MEAN CORPUSCULAR VOLUME 97.7 fL (81-97); MEAN PLATELET VOLUME 7.1 fL (7.4-10.4); MONOCYTES # (AUTO) 0.48 x10^3/uL (0.2-0.8); MONOCYTES % (AUTO) 7 % (2-9); NEUTROPHILS # (AUTO) 4.36 x10^3/uL (1.8-6.8); NEUTROPHILS % (AUTO) 61 % (42-75); PLATELET COUNT 328 x10^3/uL (130-400); RED BLOOD COUNT 4.69 x10^6/uL (4.38-5.82); RED CELL DISTRIBUTION WIDTH 14.6 % (9.4-14.8)
[2019-04-18 13:31] LABS: ALBUMIN 3.2 g/dL (3.4-5.0); ANION GAP 9 mmol/L (5-15); CALCIUM 8.3 mg/dL (8.5-10.1); CHLORIDE 101 mmol/L (98-107)
[2019-04-18 13:35] LABS: ALANINE AMINOTRANSFERASE 19 U/L (12-78); ALKALINE PHOSPHATASE 118 U/L (45-117); BILIRUBIN,TOTAL 0.4 mg/dL (0.2-1.0); CREATININE 0.93 mg/dL (0.7-1.3); SALICYLATE LEVEL 2.8 mg/dL (2.8-20.0); TOTAL PROTEIN 6.7 g/dL (6.4-8.2)
--- NOTE | 2019-04-18 14:41 | NUR ---
pt resting in secured room with itter at doorway. no needs expressed.
[2019-04-18 14:45] LABS: AMPHETAMINE SCREEN, URINE Negative (Negative); BARBITURATE SCREEN, URINE Negative (Negative); BENZODIAZEPINE SCREEN, URINE Negative (Negative); CANNABINOID SCREEN, URINE Negative (Negative); COCAINE SCREEN, URINE Negative (Negative); METHADONE SCREEN, URINE Negative (Negative); OPIATE SCREEN, URINE Negative (Negative)
--- NOTE | 2019-04-18 15:31 | NUR ---
pt resting in secured room with itter at doorway. no needs expressed.
--- NOTE | 2019-04-18 16:01 | NUR ---
pt resting in secured room with sitter at doorway for continuous montioring. lunch tray ordered. no needs expressed.
--- NOTE | 2019-04-18 17:19 | NUR ---
dinner tray provided to pt. pt now resting in secured room with sitter at doorway. no needs expressed. awatiing telepsych.
--- NOTE | 2019-04-18 19:19 | NUR ---
REPORT OBTAINED, ASSUMING CARE OF PT. PT IN STABLE CONDITION. NAD.
--- NOTE | 2019-04-18 19:25 | NUR ---
TP RN: PACKET WAS FAXED TO [facility] AND CONFIRMAITION FAX WAS RECEIVED. AWAITING DISPO.
[2019-04-18] MEDS ORDERED: NICOTINE 14MG/24 HR PATCH.TD24 TD PRN (19:30)
[2019-04-18 19:49] VITALS: BP 137/86
--- NOTE | 2019-04-18 19:59 | NUR ---
PT RESTING COMFORTABLY IN BED AND DENIES ANY NEEDS. HOWEVER, PT REPORTS HE STILL HAS THOUGHTS OF HARMING HIMSELF. VSS. DANIELLE.
[2019-04-18] MEDS ORDERED: QUETIAPINE 100MG TABLET PO SCH (21:00)
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
--- NOTE | 2019-04-18 21:06 | NUR ---
PT RESTING IN ROOM WITH EQUAL CHEST RISE AND GOOD CAP REFILL. PT HAS NADN. PT HAS SITTER OUTSIDE ROOM FOR CONTINOUS SAFETY MONITORING.
[2019-04-18] MEDS ORDERED: QUETIAPINE 100MG TABLET ONE (21:08)
--- NOTE | 2019-04-18 21:12 | NUR ---
PT MEDICATED PER EMAR.
--- NOTE | 2019-04-18 21:26 | NUR ---
PT SLEEPING - BILATERAL CHEST RISE NOTED. NADN. SITTER PRESENT AND ALL SAFETY PRECAUTIONS IN PLACE. WILL CONTINUE TO MONITOR.
--- NOTE | 2019-04-18 21:59 | NUR ---
TP RN: HAVEN'T HEARD BACK FROM [facility] ON IF THEY ARE ACCEPTING PT. [facility]ACK[facility] TO [facility], [facility], [facility], [facility], AND [facility]. CONFIRMATION FAX RECEIVED BACK FROM [facility].
--- NOTE | 2019-04-18 22:18 | NUR ---
EMMETT RN: RECEIVED FAX CONFIRMATION FROM [facility], [facility], [facility], AND [facility].
--- NOTE | 2019-04-18 22:52 | NUR ---
PT SLEEPING - BILATERAL CHEST RISE VISIBLE. ALL SI SAFETY MEASURES IN PLACE. SITTER WITH PT.
--- NOTE | 2019-04-18 23:00 | NUR ---
PT STATES HE IS STILL HUNGRY. MEAL TRAY ORDERED.
--- NOTE | 2019-04-18 23:04 | NUR ---
Informed ER throughput staff member, bev Robison to obtain prior authorization for insurance acceptance until daytime business hours.
--- NOTE | 2019-04-18 23:04 | NUR ---
TPRN: ROBERT BAI ON [facility], NOT ABLE TO GET PREAUTHORIZATION OF PT INSURANCE UNTIL BUSINESS HOURS TOMORROW MORNING.
--- NOTE | 2019-04-18 23:06 | NUR ---
TPRN: MILO REVIEWING PT PACKET NOW, WILL BE IN TOUCH WITH [facility]
--- NOTE | 2019-04-18 23:16 | NUR ---
MARKIE: SPOKE WITH PATRICIA AT [facility], PT WILL BE ACCEPTED WITH DR CHAUDHARI.
--- NOTE | 2019-04-18 23:23 | NUR ---
PT SLEEPING - BILATERAL CHEST RISE NOTED. NADN. SITTER PRESENT AND ALL SAFETY PRECAUTIONS IN PLACE. WILL CONTINUE TO MONITOR.
--- NOTE | 2019-04-18 23:48 | NUR ---
REPORT GIVEN TO DOROTHY AT [facility]. PT BELONGINGS GIVEN TO CHRISS AT TIME OF DC. FINGER STICK DONE PRIOR TO TRANSFER TO FACILITY. PT IN STABLE CONDITION AND APPROPRIATE FOR DC.
[2019-06-11] MEDS ORDERED: QUET100T PO (12:49)
[2019-06-11] MEDS ORDERED: NICO-487 TD (12:49)
[2019-06-11] MEDS ORDERED: ASPI81TA45 PO (12:49)
[2019-06-11] MEDS ORDERED: LISI5TAB7 PO (12:49)
[2019-06-11] MEDS ORDERED: INSU100I13 SQ-INSULIN (12:49)
[2019-06-11] MEDS ORDERED: CARV3.1212 PO (12:49)
[2019-06-11] MEDS ORDERED: CLOP75TA PO (12:49)
[2019-06-11] MEDS ORDERED: OLAN5TAB9 PO (12:49)
[2019-06-11] MEDS ORDERED: HYDR50CA2 PO (12:49)
[2019-06-11] MEDS ORDERED: AMLO2.5T5 PO (12:49)
== END 2019-04-18 23:53 ==
LOC: ED 15:36
DX: F32.3 Major depressive disorder, single episode, severe with psychotic features (principal); F17.200 Nicotine dependence, unspecified, uncomplicated; J45.909 Unspecified asthma, uncomplicated; E78.00 Pure hypercholesterolemia, unspecified; E11.9 Type 2 diabetes mellitus without complications; E78.5 Hyperlipidemia, unspecified; I25.10 Atherosclerotic heart disease of native coronary artery without angina pectoris; I10 Essential (primary) hypertension
CPT/HCPCS: 36415; 80053; 80307; 82962; 85025; 99285

== ENCOUNTER 2019-12-01 10:10 | Emergency (ER) | payer MEDICAID, MEDICARE ==
[~2019-12-01] VITALS: Ht 167.6 cm; Wt 75.0 kg
[~2019-12-01 10:10] MED LIST changes: +AMLO2.5T5 PO; +HYDR50CA2 PO; +INSU100I13 SQ-INSULIN; +LISI5TAB7 PO; -MAGN400T7 PO; +MAGN400T9 PO; +OLAN5TAB9 PO; +QUET100T PO
--- NOTE | 2019-12-01 10:15 | NUR ---
ZANDRA BANERJEE. Patient states, "'I've been sad ever since the weather has been bad and people have been mean to me." When asked, "do you want to kill yourself?", patient denies. When asked, "Would you kill yourself", but says yes. NAD. VSS. Belongings locked up. Room secured. Report to primary RN, Elzbieta.
[2019-12-01 10:29] VITALS: BP 137/80
--- NOTE | 2019-12-01 10:38 | NUR ---
Meal tray ordered.
[2019-12-01 11:01] LABS: AMPHETAMINE SCREEN, URINE Negative (Negative); BARBITURATE SCREEN, URINE Negative (Negative); BENZODIAZEPINE SCREEN, URINE Negative (Negative); CANNABINOID SCREEN, URINE Negative (Negative); COCAINE SCREEN, URINE Negative (Negative); METHADONE SCREEN, URINE Negative (Negative); OPIATE SCREEN, URINE Negative (Negative)
[2019-12-01 11:09] LABS: ALBUMIN 3.9 g/dL (3.4-5.0); ANION GAP 10 mmol/L (5-15); BASOPHILS # (AUTO) 0.02 x10^3/uL (0-0.1); BASOPHILS % (AUTO) 0 % (0-1); CALCIUM 9.2 mg/dL (8.5-10.1); CHLORIDE 98 mmol/L (98-107); CREATININE 0.98 mg/dL (0.7-1.3); EOSINOPHILS # (AUTO) 0.06 x10^3/uL (0-0.4); EOSINOPHILS % (AUTO) 1 % (1-7); LYMPHOCYTES # (AUTO) 1.48 x10^3/uL (1-3.4); LYMPHOCYTES % (AUTO) 29 % (22-44); MD NO; MEAN CORPUSCULAR HEMOGLOBIN 31.6 pg (27.5-34.5); MEAN CORPUSCULAR HGB CONC 33.7 g/dL (33.2-36.2); MEAN CORPUSCULAR VOLUME 93.9 fL (81-97); MEAN PLATELET VOLUME 7.1 fL (7.4-10.4); MONOCYTES # (AUTO) 0.46 x10^3/uL (0.2-0.8); MONOCYTES % (AUTO) 9 % (2-9); NEUTROPHILS # (AUTO) 3.17 x10^3/uL (1.8-6.8); NEUTROPHILS % (AUTO) 61 % (42-75); PLATELET COUNT 282 x10^3/uL (130-400); RED BLOOD COUNT 5.45 x10^6/uL (4.38-5.82); RED CELL DISTRIBUTION WIDTH 15.4 % (9.4-14.8); SALICYLATE LEVEL < 1.7 mg/dL (2.8-20.0)
--- NOTE | 2019-12-01 11:20 | NUR ---
UDS COLLECTED AND SENT
[2019-12-01] MEDS ORDERED: QUETIAPINE 25MG TABLET PO ONE (13:30)
[2019-12-01] MEDS ORDERED: QUETIAPINE 25MG TABLET ONE (13:35)
== END 2019-12-01 15:10 | disposition home or self-care (01) ==
LOC: ED 10:17
DX: F33.9 Major depressive disorder, recurrent, unspecified (principal); R45.851 Suicidal ideations; I10 Essential (primary) hypertension; E11.9 Type 2 diabetes mellitus without complications; F20.9 Schizophrenia, unspecified
CPT/HCPCS: 36415; 80048; 80307; 82040; 85025; 99284

== ENCOUNTER 2020-03-18 16:09 | Emergency (ER) | payer MEDICARE, MEDICAID ==
[~2020-03-18] VITALS: Ht 160 cm; Wt 80.0 kg
[2020-03-18 16:44] LABS: AMPHETAMINE SCREEN, URINE Negative (Negative); BARBITURATE SCREEN, URINE Negative (Negative); BENZODIAZEPINE SCREEN, URINE Negative (Negative); CANNABINOID SCREEN, URINE Positive (Negative); COCAINE SCREEN, URINE Negative (Negative); METHADONE SCREEN, URINE Negative (Negative); OPIATE SCREEN, URINE Negative (Negative)
[2020-03-18] MEDS ORDERED: MAALOX/HYOSCYAMINE/LIDOCAINE 45 ML BTL ONE (16:55)
[2020-03-18] MEDS ORDERED: ONDANSETRON ODT 4 MG ONE (16:55)
[2020-03-18 16:59] LABS: BASOPHILS # (AUTO) 0.04 x10^3/uL (0-0.1); BASOPHILS % (AUTO) 0 % (0-1); EOSINOPHILS # (AUTO) 0.01 x10^3/uL (0-0.4); EOSINOPHILS % (AUTO) 0 % (1-7); LYMPHOCYTES # (AUTO) 1.72 x10^3/uL (1-3.4); LYMPHOCYTES % (AUTO) 19 % (22-44); MD NO; MEAN CORPUSCULAR HEMOGLOBIN 31.5 pg (27.5-34.5); MEAN CORPUSCULAR HGB CONC 33.4 g/dL (33.2-36.2); MEAN CORPUSCULAR VOLUME 94.3 fL (81-97); MEAN PLATELET VOLUME 7.1 fL (7.4-10.4); MONOCYTES # (AUTO) 0.53 x10^3/uL (0.2-0.8); MONOCYTES % (AUTO) 6 % (2-9); NEUTROPHILS # (AUTO) 6.97 x10^3/uL (1.8-6.8); NEUTROPHILS % (AUTO) 75 % (42-75); PLATELET COUNT 264 x10^3/uL (130-400); RED BLOOD COUNT 5.12 x10^6/uL (4.38-5.82); RED CELL DISTRIBUTION WIDTH 14.4 % (9.4-14.8)
[2020-03-18] MEDS ORDERED: MAALOX/HYOSCYAMINE/LIDOCAINE 45 ML BTL PO ONE (17:00)
[2020-03-18] MEDS ORDERED: ONDANSETRON ODT 4 MG PO ONE (17:00)
[2020-03-18 17:01] LABS: ALANINE AMINOTRANSFERASE 40 U/L (12-78); ALBUMIN 3.6 g/dL (3.4-5.0); ANION GAP 12 mmol/L (5-15); CALCIUM 9.3 mg/dL (8.5-10.1); CHLORIDE 100 mmol/L (98-107)
[2020-03-18 17:04] LABS: ALKALINE PHOSPHATASE 71 U/L (45-117); BILIRUBIN,TOTAL 0.5 mg/dL (0.2-1.0); CREATININE 0.77 mg/dL (0.7-1.3); TOTAL PROTEIN 7.6 g/dL (6.4-8.2)
[2020-03-18] MEDS ORDERED: SODIUM CHLORIDE FLUSH 10ML SYR IVF ONE (17:30)
[2020-03-18] MEDS ORDERED: SODIUM CHLORIDE 0.9% 1,000ML IVBOLUS ONE (17:30)
--- NOTE | 2020-03-18 18:55 | NUR ---
TASK RN NOTE: PT LAYING ON SIDE IN BED, NAD NOTED AT THIS TIME. RESPIRATIONS EVEN AND UNLABORED. FLOOR CLEANED AFTER PT DL FROM BED, AND BEGAN URINATING ON FLOOR. PT COMPLETED URINATING INTO URINAL PROVIDED BY PRIMARY RN. SIDE RAIL UP, CALL LIGHT IN REACH.
--- NOTE | 2020-03-18 19:16 | NUR ---
TASK RN NOTE: NEW IV START AFTER PT ACCIDENTALLY SELF DC'ED INITIAL IV. IVF INFUSING PER EMAR. REPORT TO NEGRA PATEL.
[2020-03-18 19:35] VITALS: BP 146/77
== END 2020-03-18 20:38 | disposition home or self-care (01) ==
LOC: ED 20:00
DX: F10.129 Alcohol abuse with intoxication, unspecified (principal); E11.65 Type 2 diabetes mellitus with hyperglycemia; E87.6 Hypokalemia; R45.851 Suicidal ideations; R00.0 Tachycardia, unspecified; R07.9 Chest pain, unspecified; I25.10 Atherosclerotic heart disease of native coronary artery without angina pectoris; J45.909 Unspecified asthma, uncomplicated; I10 Essential (primary) hypertension; E78.5 Hyperlipidemia, unspecified; Z88.0 Allergy status to penicillin; Z88.2 Allergy status to sulfonamides; Y90.9 Presence of alcohol in blood, level not specified
CPT/HCPCS: 36415; 71045; 80053; 80307; 85025; 93005; 99285; Q0162

== ENCOUNTER 2020-03-28 18:28 | Inpatient (IN) | payer MEDICARE, MEDICAID ==
[~2020-03-28] VITALS: Ht 170.2 cm; Wt 71.9 kg
[~2020-03-28 18:28] MED LIST changes: -PANT40TA5 PO; +PANT40TA6 PO
[2020-03-28 19:52] VITALS: BP 110/70
[2020-03-28] MEDS ORDERED: POLYETHYLENE GLYCOL 17 GM PACKET PO PRN (21:00)
[2020-03-28] MEDS ORDERED: BISACODYL 10 MG SUPP PR PRN (21:00)
[2020-03-28] MEDS ORDERED: DOCUSATE 100 MG CAPSULE PO PRN (21:00)
[2020-03-28] MEDS ORDERED: ONDANSETRON ODT 4 MG PO PRN (21:00)
[2020-03-28] MEDS ORDERED: SODIUM CHLORIDE FLUSH 10ML SYR IVF SCH (21:30)
[2020-03-28] MEDS ORDERED: DEXTROSE 50%, 50ML SYRINGE IVPush PRN ×2 (21:30→22:00)
[2020-03-28] MEDS ORDERED: GLUCAGON 1 MG IM PRN ×2 (21:30→22:00)
[2020-03-28] MEDS ORDERED: INSULIN LISPRO 100 UNITS/ML, PEN SQ-INSULIN SCH (21:30)
[2020-03-28] MEDS ORDERED: MAGNESIUM HYDROXIDE 8%, 30ML UDC PO PRN (21:30)
[2020-03-28] MEDS ORDERED: DEXTROSE 4 GM TAB.CHEW PO PRN ×2 (21:30→22:00)
[2020-03-28] MEDS ORDERED: ALUMINUM/MAG/SIMETHICONE 30 ML UDC PO PRN (21:30)
[2020-03-28] MEDS: HEPARIN 5,000 UNITS/ML, 1ML SQ SCH (21:40)
[2020-03-28] MEDS: ACETAMINOPHEN 325 MG TABLET PO PRN (21:40)
[2020-03-28] MEDS: ATORVASTATIN 20 MG TABLET PO SCH (21:40)
[2020-03-28] MEDS: INSULIN GLARGINE 100 UNITS/ML, PEN SQ-INSULIN SCH (21:59)
[2020-03-28] MEDS: INSULIN LISPRO 100 UNITS/ML, PEN SQ-INSULIN SCH (21:59)
[2020-03-28] MEDS ORDERED: INSULIN GLARGINE 100 UNITS/ML, PEN SQ-INSULIN SCH (22:00)
[2020-03-28] MEDS ORDERED: TRAZODONE 50MG TABLET PO PRN (22:00)
[2020-03-28 23:28] VITALS: BP 110/70
[2020-03-29 05:32] LABS: CHLORIDE 104 mmol/L (98-107)
[2020-03-29 05:41] LABS: ALANINE AMINOTRANSFERASE 37 U/L (12-78); ALKALINE PHOSPHATASE 76 U/L (45-117); ANION GAP 7 mmol/L (5-15); BILIRUBIN,TOTAL 0.2 mg/dL (0.2-1.0); CALCIUM 8.5 mg/dL (8.5-10.1); CHOL/HDL RATIO 3.5; CHOLESTEROL, TOTAL 127 mg/dL (140-239); CREATININE 0.55 mg/dL (0.7-1.3); HDL CHOL % 28 % (26-37); HDL CHOLESTEROL (DIRECT) 36 mg/dL (40-60); LDL CHOLESTEROL,CALCULATED 70 mg/dL (54-169); LDL/HDL RATIO 1.9 (0.5-3.0); TOTAL PROTEIN 5.9 g/dL (6.4-8.2); TRIGLYCERIDES 107 mg/dL (50-200); VLDL CHOLESTEROL 21 mg/dL (0-25)
[2020-03-29 05:53] LABS: MEAN PLATELET VOLUME 6.6 fL (7.4-10.4); PLATELET COUNT 471 x10^3/uL (130-400); RED BLOOD COUNT 3.61 x10^6/uL (4.38-5.82); RED CELL DISTRIBUTION WIDTH 14.1 % (9.4-14.8)
[2020-03-29 06:08] LABS: FREE T4 (FREE THYROXINE) 1.05 ng/dL (0.76-1.46)
[2020-03-29] MEDS: HEPARIN 5,000 UNITS/ML, 1ML SQ SCH ×3 (06:10→21:11)
[2020-03-29 06:25] LABS: MD YES
[2020-03-29 06:32] LABS: EOS% (MANUAL) 2 % (1-7); LYMPH#(MANUAL) 1.92 x10^3/uL (1-3.4); LYMPHS% (MANUAL) 37 % (22-44); MONOS#(MANUAL) 0.99 x10^3/uL (0.3-2.7); MONOS% (MANUAL) 19 % (2-9); SEG#(MANUAL) 2.18 x10^3/uL (1.8-6.8); SEGS% (MANUAL) 42 % (42-75)
[2020-03-29 06:34] LABS: <PLATELET ESTIMATE> INCREASED; ANISOCYTOSIS 1+; SMALL PLATELETS 1+
[2020-03-29 07:40] VITALS: BP 106/71
[2020-03-29] MEDS: INSULIN LISPRO 100 UNITS/ML, PEN SQ-INSULIN SCH ×4 (07:52→20:13)
[2020-03-29] MEDS ORDERED: OLANZAPINE 10 MG TABLET PO SCH (09:00)
[2020-03-29] MEDS: NICOTINE 21 MG/24 HR PATCH.TD24 TD SCH (09:04)
[2020-03-29] MEDS: ASPIRIN 81 MG TABLET CHEW PO SCH (09:04)
[2020-03-29] MEDS: OLANZAPINE 5 MG TABLET PO SCH (09:04)
[2020-03-29] MEDS: MELOXICAM 15 MG TABLET PO SCH (09:04)
[2020-03-29] MEDS: INSULIN GLARGINE 100 UNITS/ML, PEN SQ-INSULIN SCH ×2 (09:06→20:14)
[2020-03-29 09:24] VITALS: BP 90/50
[2020-03-29 09:40] VITALS: BP 116/69
[2020-03-29 10:52] LABS: TROPONIN I < 0.015 ng/mL (0.000-0.045)
--- NOTE | 2020-03-29 11:14 | NUR ---
Do not anticipate need for FLIGHT SURVEYOR intervention in regards to dysphagia at time of discharge. Addendum: 03/29/20 at 1114 by Geraldine PRATER Amended: Links added.
[2020-03-29] MEDS: ACETAMINOPHEN 325 MG TABLET PO PRN ×2 (13:41→18:12)
[2020-03-29 16:30] LABS: AMPHETAMINE SCREEN, URINE Negative (Negative); BARBITURATE SCREEN, URINE Negative (Negative); BENZODIAZEPINE SCREEN, URINE Negative (Negative); CANNABINOID SCREEN, URINE Positive (Negative); COCAINE SCREEN, URINE Negative (Negative); METHADONE SCREEN, URINE Negative (Negative); OPIATE SCREEN, URINE Negative (Negative)
[2020-03-29 16:54] LABS: MICROSCOPIC INDICATED
[2020-03-29 19:19] VITALS: BP 99/65
[2020-03-29] MEDS: ATORVASTATIN 20 MG TABLET PO SCH (21:11)
[2020-03-30] MEDS: HEPARIN 5,000 UNITS/ML, 1ML SQ SCH ×3 (06:10→20:51)
[2020-03-30 07:25] VITALS: BP 113/72
[2020-03-30] MEDS: INSULIN LISPRO 100 UNITS/ML, PEN SQ-INSULIN SCH ×4 (08:20→20:28)
[2020-03-30] MEDS: INSULIN GLARGINE 100 UNITS/ML, PEN SQ-INSULIN SCH ×2 (08:21→20:27)
[2020-03-30] MEDS: MELOXICAM 15 MG TABLET PO SCH (08:22)
[2020-03-30] MEDS: OLANZAPINE 5 MG TABLET PO SCH (08:22)
[2020-03-30] MEDS: ASPIRIN 81 MG TABLET CHEW PO SCH (08:22)
[2020-03-30] MEDS: NICOTINE 21 MG/24 HR PATCH.TD24 TD SCH (08:23)
[2020-03-30] MEDS: ALBUTEROL HFA 90 MCG/SPRAY INH PRN (12:00)
--- NOTE | 2020-03-30 12:45 | NUR ---
The patient may benefit from WAITER/WAITRESS THIRD CLASS intervention in the outpatient setting. Addendum: 03/30/20 at 1245 by Geraldine PRATER Amended: Links added.
[2020-03-30] MEDS: ACETAMINOPHEN 325 MG TABLET PO PRN ×2 (12:57→18:11)
[2020-03-30 19:42] VITALS: BP 125/78
[2020-03-30] MEDS: ATORVASTATIN 20 MG TABLET PO SCH (20:33)
[2020-03-30] MEDS: QUETIAPINE 200 MG TABLET PO SCH (20:33)
[2020-03-31] MEDS: HEPARIN 5,000 UNITS/ML, 1ML SQ SCH ×3 (05:48→21:29)
[2020-03-31 07:33] VITALS: BP 110/78
[2020-03-31] MEDS: MELOXICAM 15 MG TABLET PO SCH (07:50)
[2020-03-31] MEDS: ALBUTEROL HFA 90 MCG/SPRAY INH PRN (07:50)
[2020-03-31] MEDS: ASPIRIN 81 MG TABLET CHEW PO SCH (07:50)
[2020-03-31] MEDS: NICOTINE 21 MG/24 HR PATCH.TD24 TD SCH (07:51)
[2020-03-31] MEDS: INSULIN GLARGINE 100 UNITS/ML, PEN SQ-INSULIN SCH ×2 (07:52→20:24)
[2020-03-31] MEDS: INSULIN LISPRO 100 UNITS/ML, PEN SQ-INSULIN SCH ×4 (07:53→20:23)
[2020-03-31] MEDS: ACETAMINOPHEN 325 MG TABLET PO PRN (14:29)
[2020-03-31 20:18] VITALS: BP 130/83
[2020-03-31] MEDS: ATORVASTATIN 20 MG TABLET PO SCH (20:22)
[2020-03-31] MEDS: QUETIAPINE 200 MG TABLET PO SCH (20:22)
[2020-04-01] MEDS: HEPARIN 5,000 UNITS/ML, 1ML SQ SCH ×3 (05:15→21:45)
[2020-04-01 07:36] VITALS: BP 105/72
[2020-04-01] MEDS: INSULIN LISPRO 100 UNITS/ML, PEN SQ-INSULIN SCH ×4 (08:00→20:21)
[2020-04-01] MEDS: MELOXICAM 15 MG TABLET PO SCH (08:35)
[2020-04-01] MEDS: ASPIRIN 81 MG TABLET CHEW PO SCH (08:35)
[2020-04-01] MEDS: NICOTINE 21 MG/24 HR PATCH.TD24 TD SCH (08:42)
[2020-04-01] MEDS: INSULIN GLARGINE 100 UNITS/ML, PEN SQ-INSULIN SCH ×2 (09:00→20:21)
[2020-04-01] MEDS: ACETAMINOPHEN 325 MG TABLET PO PRN (15:32)
[2020-04-01 19:04] VITALS: BP 111/71
[2020-04-01] MEDS: ATORVASTATIN 20 MG TABLET PO SCH (20:20)
[2020-04-01] MEDS: QUETIAPINE 200 MG TABLET PO SCH (20:23)
[2020-04-02] MEDS: HEPARIN 5,000 UNITS/ML, 1ML SQ SCH ×2 (06:04→14:49)
[2020-04-02 06:36] VITALS: BP 90/59
[2020-04-02] MEDS: MELOXICAM 15 MG TABLET PO SCH (08:01)
[2020-04-02] MEDS: ASPIRIN 81 MG TABLET CHEW PO SCH (08:01)
[2020-04-02] MEDS: NICOTINE 21 MG/24 HR PATCH.TD24 TD SCH (08:02)
[2020-04-02] MEDS: INSULIN LISPRO 100 UNITS/ML, PEN SQ-INSULIN SCH ×4 (08:07→20:42)
[2020-04-02] MEDS: INSULIN GLARGINE 100 UNITS/ML, PEN SQ-INSULIN SCH ×2 (09:00→20:38)
[2020-04-02] MEDS: ACETAMINOPHEN 325 MG TABLET PO PRN (11:21)
[2020-04-02] MEDS: PALIPERIDONE 3 MG TAB.ER.24 PO SCH (15:50)
[2020-04-02 17:43] VITALS: BP 147/81
[2020-04-02] MEDS ORDERED: OMNIPAQUE 350 MG/ML, 50 ML BOTTLE ONE (18:51)
[2020-04-02 19:56] VITALS: BP 133/83
[2020-04-02] MEDS: ATORVASTATIN 20 MG TABLET PO SCH (20:34)
[2020-04-02] MEDS: TRAZODONE 100MG TABLET PO SCH (20:34)
[2020-04-03] MEDS: HEPARIN 5,000 UNITS/ML, 1ML SQ SCH ×2 (00:13→06:01)
[2020-04-03] MEDS: OMEPRAZOLE 20 MG CAPSULE.DR PO SCH ×2 (06:02→16:48)
[2020-04-03 07:00] VITALS: BP 106/71
[2020-04-03] MEDS: MELOXICAM 15 MG TABLET PO SCH (08:29)
[2020-04-03] MEDS: PALIPERIDONE 3 MG TAB.ER.24 PO SCH (08:29)
[2020-04-03] MEDS: ASPIRIN 81 MG TABLET CHEW PO SCH (08:29)
[2020-04-03] MEDS: INSULIN LISPRO 100 UNITS/ML, PEN SQ-INSULIN SCH ×4 (08:30→20:54)
[2020-04-03] MEDS: NICOTINE 21 MG/24 HR PATCH.TD24 TD SCH (08:32)
[2020-04-03] MEDS: INSULIN GLARGINE 100 UNITS/ML, PEN SQ-INSULIN SCH ×2 (09:05→20:52)
[2020-04-03] MEDS: ACETAMINOPHEN 325 MG TABLET PO PRN (11:45)
[2020-04-03 19:06] VITALS: BP 102/64
[2020-04-03] MEDS: TRAZODONE 100MG TABLET PO SCH (20:54)
[2020-04-03] MEDS: ATORVASTATIN 20 MG TABLET PO SCH (20:54)
[2020-04-04] MEDS: OMEPRAZOLE 20 MG CAPSULE.DR PO SCH ×2 (06:17→17:16)
[2020-04-04] MEDS: INSULIN LISPRO 100 UNITS/ML, PEN SQ-INSULIN SCH ×4 (07:00→20:15)
[2020-04-04 07:02] VITALS: BP 110/74
[2020-04-04] MEDS: PALIPERIDONE 3 MG TAB.ER.24 PO SCH (08:24)
[2020-04-04] MEDS: MELOXICAM 15 MG TABLET PO SCH (08:24)
[2020-04-04] MEDS: ASPIRIN 81 MG TABLET CHEW PO SCH (08:25)
[2020-04-04] MEDS: INSULIN GLARGINE 100 UNITS/ML, PEN SQ-INSULIN SCH ×2 (08:28→20:18)
[2020-04-04] MEDS: NICOTINE 21 MG/24 HR PATCH.TD24 TD SCH (09:00)
[2020-04-04 19:04] VITALS: BP 104/65
[2020-04-04] MEDS: TRAZODONE 100MG TABLET PO SCH (20:19)
[2020-04-04] MEDS: ATORVASTATIN 20 MG TABLET PO SCH (20:19)
[2020-04-05] MEDS: OMEPRAZOLE 20 MG CAPSULE.DR PO SCH ×2 (06:04→16:09)
[2020-04-05] MEDS: INSULIN LISPRO 100 UNITS/ML, PEN SQ-INSULIN SCH ×4 (07:00→20:13)
[2020-04-05 07:10] VITALS: BP 96/74
[2020-04-05] MEDS: ASPIRIN 81 MG TABLET CHEW PO SCH (09:00)
[2020-04-05] MEDS: INSULIN GLARGINE 100 UNITS/ML, PEN SQ-INSULIN SCH ×2 (09:00→20:11)
[2020-04-05] MEDS: MELOXICAM 15 MG TABLET PO SCH (09:00)
[2020-04-05] MEDS: NICOTINE 21 MG/24 HR PATCH.TD24 TD SCH (09:00)
[2020-04-05] MEDS: PALIPERIDONE 3 MG TAB.ER.24 PO SCH (09:00)
[2020-04-05] MEDS: ACETAMINOPHEN 325 MG TABLET PO PRN (16:10)
[2020-04-05 19:42] VITALS: BP 100/63
[2020-04-05] MEDS: TRAZODONE 100MG TABLET PO SCH (20:12)
[2020-04-05] MEDS: ATORVASTATIN 20 MG TABLET PO SCH (20:12)
[2020-04-06] MEDS: ACETAMINOPHEN 325 MG TABLET PO PRN (03:51)
[2020-04-06] MEDS: OMEPRAZOLE 20 MG CAPSULE.DR PO SCH (06:23)
[2020-04-06] MEDS: INSULIN LISPRO 100 UNITS/ML, PEN SQ-INSULIN SCH ×2 (07:00→11:43)
[2020-04-06 07:40] VITALS: BP 88/51
[2020-04-06] MEDS: INSULIN GLARGINE 100 UNITS/ML, PEN SQ-INSULIN SCH (08:18)
[2020-04-06] MEDS: NICOTINE 21 MG/24 HR PATCH.TD24 TD SCH (08:18)
[2020-04-06] MEDS: ASPIRIN 81 MG TABLET CHEW PO SCH (08:18)
[2020-04-06] MEDS: MELOXICAM 15 MG TABLET PO SCH (08:18)
[2020-04-06] MEDS: PALIPERIDONE 3 MG TAB.ER.24 PO SCH (08:18)
[2020-04-06] MEDS ORDERED: PALI3TAB11 PO ×2 (11:00)
[2020-04-06] MEDS ORDERED: ATOR20TA37 PO ×2 (11:00)
[2020-04-06] MEDS ORDERED: INSU100I13 SQ-INSULIN ×2 (11:00)
[2020-04-06] MEDS ORDERED: ASPI-515 PO ×2 (11:00)
[2020-04-06] MEDS ORDERED: OMEP-110 PO ×2 (11:00)
[2020-04-06] MEDS ORDERED: TRAZ-175 PO (11:00)
[2020-04-06] MEDS ORDERED: NICO-487 TD (11:00)
[2020-04-06] MEDS ORDERED: INSU100I11 SQ-INSULIN (11:00)
[2020-05-24] MEDS ORDERED: ASPI-515 PO (12:16)
[2020-05-24] MEDS ORDERED: CLOP75TA PO (12:16)
[2020-05-24] MEDS ORDERED: OMEP-110 PO (12:16)
[2020-05-24] MEDS ORDERED: GLIP5TAB10 PO (12:16)
[2020-05-24] MEDS ORDERED: POLY17PO5 PO (12:16)
[2020-05-24] MEDS ORDERED: MELA5TAB14 PO (12:16)
[2020-05-24] MEDS ORDERED: PALI3TAB11 PO (12:16)
[2020-05-24] MEDS ORDERED: CARV3.1212 PO (12:16)
[2020-05-24] MEDS ORDERED: TRAZ-175 PO (12:16)
[2020-05-24] MEDS ORDERED: DULO20CA18 PO (12:16)
[2020-05-24] MEDS ORDERED: AMLO2.5T5 PO (12:16)
[2020-05-24] MEDS ORDERED: ATOR20TA37 PO (12:16)
[2020-05-24] MEDS ORDERED: DOCU100C33 PO (12:16)
[2020-05-24] MEDS ORDERED: METF500T PO (12:16)
[2020-05-24] MEDS ORDERED: LINA5TAB PO (12:16)
== END 2020-04-06 13:50 | disposition home or self-care (01) | DRG 885 ==
LOC: 3E 18:41
PROVIDERS: ADMIT Psychiatry & Neurology Psychosomatic Medicine; ATTEND Psychiatry & Neurology Psychosomatic Medicine
DX: F25.1 Schizoaffective disorder, depressive type (principal); E87.1 Hypo-osmolality and hyponatremia; D64.9 Anemia, unspecified; E11.42 Type 2 diabetes mellitus with diabetic polyneuropathy; E78.5 Hyperlipidemia, unspecified; F17.210 Nicotine dependence, cigarettes, uncomplicated; F31.9 Bipolar disorder, unspecified; F41.1 Generalized anxiety disorder; G47.00 Insomnia, unspecified; I10 Essential (primary) hypertension; I25.10 Atherosclerotic heart disease of native coronary artery without angina pectoris; J45.909 Unspecified asthma, uncomplicated; K21.9 Gastro-esophageal reflux disease without esophagitis; R62.7 Adult failure to thrive; Z59.0 Homelessness; Z79.4 Long term (current) use of insulin; Z79.82 Long term (current) use of aspirin; Z79.899 Other long term (current) drug therapy; Z80.6 Family history of leukemia; Z86.73 Personal history of transient ischemic attack (TIA), and cerebral infarction without residual deficits; Z95.5 Presence of coronary angioplasty implant and graft; Z91.19 Patient's noncompliance with other medical treatment and regimen; Z90.89 Acquired absence of other organs; Z88.0 Allergy status to penicillin; Z88.2 Allergy status to sulfonamides
CPT/HCPCS: 36415; 74220; 80053; 80061; 80307; 81001; 82607; 82962; 83036; 84439; 84443; 84484; 85025; 93005; J1644; Q9967; 92523-GN; J1815

== ENCOUNTER 2020-04-12 15:29 | Emergency (ER) | payer MEDICARE, MEDICAID ==
[~2020-04-12] VITALS: Ht 170.2 cm; Wt 60.0 kg
[~2020-04-12 15:29] MED LIST changes: +ASPI-515 PO; +ATOR20TA37 PO; +INSU100I11 SQ-INSULIN; +OMEP-110 PO; +PALI3TAB11 PO; +PANT40TA5 PO; -PANT40TA6 PO; +TRAZ-175 PO
--- NOTE | 2020-04-12 15:44 | NUR ---
BIB [facility] FROM HOME FOR WEAKNESS. PT DC FROM [facility] TWO DAYS AGO AFTER BEING ADMITTED FOR [place]. PT UNABLE TO CARE FOR SELF AT HOME, NURSE CALLED FOR [facility] TO BRING PT BACK TO HOSPITAL. PT HAS NOT GOTTEN ANY MEDS NEEDED FROM PHARMACY. GRAVURE PRESS OPERATOR [facility]: PIV 18G RFA, 500ML NS. BG 385 PT STATES HE HAS FALLEN SINCE HE'S BEEN HOME, DENIES LOC. PT CONNECTED TO MONITORING. FALL PRECAUTIONS IN PLACE. CALL LIGHT IN REACH.
[2020-04-12 17:18] LABS: BASOPHILS # (AUTO) 0.04 x10^3/uL (0-0.1); BASOPHILS % (AUTO) 1 % (0-1); EOSINOPHILS # (AUTO) 0.15 x10^3/uL (0-0.4); EOSINOPHILS % (AUTO) 2 % (1-7); LYMPHOCYTES # (AUTO) 1.78 x10^3/uL (1-3.4); LYMPHOCYTES % (AUTO) 22 % (22-44); MD NO; MEAN CORPUSCULAR HEMOGLOBIN 31.9 pg (27.5-34.5); MEAN CORPUSCULAR HGB CONC 33.4 g/dL (33.2-36.2); MEAN CORPUSCULAR VOLUME 95.5 fL (81-97); MEAN PLATELET VOLUME 5.9 fL (7.4-10.4); MONOCYTES # (AUTO) 0.71 x10^3/uL (0.2-0.8); MONOCYTES % (AUTO) 9 % (2-9); NEUTROPHILS # (AUTO) 5.52 x10^3/uL (1.8-6.8); NEUTROPHILS % (AUTO) 67 % (42-75); PLATELET COUNT 389 x10^3/uL (130-400); RED BLOOD COUNT 3.59 x10^6/uL (4.38-5.82); RED CELL DISTRIBUTION WIDTH 15.1 % (9.4-14.8)
--- NOTE | 2020-04-12 17:23 | NUR ---
URINE COLLECTED VIA STRAIGHT CATH AND TAKEN TO LAB. PT TOLLERATED WELL. PT RESTING COMFORTABLY ON GURNEY. DIET TRAY ORDERED PER .
[2020-04-12 17:27] LABS: ALBUMIN 2.6 g/dL (3.4-5.0); ANION GAP 8 mmol/L (5-15); CALCIUM 7.9 mg/dL (8.5-10.1); CHLORIDE 111 mmol/L (98-107)
[2020-04-12 17:29] LABS: MICROSCOPIC AUTO
[2020-04-12 17:31] LABS: ALANINE AMINOTRANSFERASE 21 U/L (12-78); ALKALINE PHOSPHATASE 78 U/L (45-117); BILIRUBIN,TOTAL 0.3 mg/dL (0.2-1.0); CREATINE KINASE, TOTAL 28 U/L (39-308); CREATININE 0.65 mg/dL (0.7-1.3); TOTAL PROTEIN 5.8 g/dL (6.4-8.2)
--- NOTE | 2020-04-12 18:02 | NUR ---
ALL RESULTS ARE BACK AT THIS TIME. CHART UP FOR RECHECK. DIET TRAY DELIVERED, PT APPRECIATIVE.
--- NOTE | 2020-04-12 18:29 | NUR ---
PLACED ORDER FOR SW CONSULT.
--- NOTE | 2020-04-12 18:43 | NUR ---
Pt sleeping, no distress noted. VS updated
--- NOTE | 2020-04-12 19:54 | NUR ---
PER MD, PT TO BE HELD UNTIL PROPER PLACEMENT/HOME CAN BE FOUND FOR SAFE DISCHARGE.
--- NOTE | 2020-04-12 20:39 | NUR ---
PT PLACED ON LEGAL HOLD FOR RETURNED TO PSYCH FACILITY FOR TREATMENT.
--- NOTE | 2020-04-12 20:42 | NUR ---
PT SLEEPING ON ABDICARO. HANNAH.
--- NOTE | 2020-04-12 20:59 | NUR ---
SITTER AT BEDSIDE FOR PT SAFETY.
--- NOTE | 2020-04-12 21:47 | NUR ---
PT SLEEPING ON GURNEY. RESP EVEN AND UNLABORED. SITTER AT BEDSIDE.
--- NOTE | 2020-04-12 22:02 | NUR ---
REPORT OF PT FROM NEGRA GANNON, AND ASSUMING CARE OF PT AT THIS TIME. PT TRANSFERRED FROM ED 23 TO ED 01. PT RESTING COMFORTABLY IN [facility] AT THIS TIME WITH SITTER OUTSIDE OF ROOM FOR DIRECT OBSERVATION OF PT.
--- NOTE | 2020-04-12 22:07 | NUR ---
PT BELONGINGS COLLECTED AND PT MOVED TO 1. ROOM SECURE, SITTER AT BEDSIDE. REPORT GIVEN TO LURDES OMER.
--- NOTE | 2020-04-12 23:25 | NUR ---
PT ASLEEP IN [facility] AT THIS TIME; HANNAH. SITTER OUTSIDE OF PT ROOM FOR DIRECT OBSERVATION OF PT.
--- NOTE | 2020-04-13 01:42 | NUR ---
PT ASLEEP IN [facility] WITH STITER OUTSIDE OF PT ROOM FOR DIRECT OBSERVATION OF PT.
--- NOTE | 2020-04-13 02:10 | NUR ---
BOWEN RN: U REFUSED PT AT THIS TIME, SAYS MAY TAKE PT AFTER SHIFT CHANGE IF STILL IN ED.
--- NOTE | 2020-04-13 02:15 | NUR ---
THROUGHPUT: PT PACKET SENT TO [facility], [facility], [facility], [facility] AND [facility].
--- NOTE | 2020-04-13 02:52 | NUR ---
PT ASLEEP IN GOWN IN [facility]; HANNAH. SITTER OUTSIDE OF PT ROOM FOR DIRECT OBSERVATION OF PT AT THIS TIME.
--- NOTE | 2020-04-13 03:41 | NUR ---
PT AMBULATES TO RESTROOM WITH STEADY GAIT AT THIS TIME. PT REQUESTING PAIN MEDICATIONS. WILL ATTEMPT TO RECEIVE MEDICATION ORDERS FROM ERP AT THIS TIME.
[2020-04-13] MEDS ORDERED: HYDROcodone/APAP 5/325 TABLET ONE (04:25)
--- NOTE | 2020-04-13 04:38 | NUR ---
PT MEDICATED PER MAR FOR PAIN AT THIS TIME. PT PROVIDED AN ADDITIONAL BLANKET. SITTER OUTSIDE OF ROOM FOR DIRECT OBSERVATION OF PT.
--- NOTE | 2020-04-13 06:08 | NUR ---
MEAL TRAY ORDERED AT THIS TIME. PT ASLEEP IN [facility]
--- NOTE | 2020-04-13 07:28 | NUR ---
RECEIVED REPORT FROM LURDES OMER AND ASSUMED CARE OF PT. PT IN DIRECT VIEW OF SITTER WITH EQUIPMENT SECURED BEHIND PULL DOWN DOORS. PT SLEEPING.
--- NOTE | 2020-04-13 08:16 | NUR ---
PT INSULIN DEPENDENT DIABETIC AND HX OF RECENT UT. SPOKE WITH ER MD ABOUT RESUMING THOSE MEDS WHILE AWAITING PLACMENT. ORDERS RECEIVED FOR SAME.
[2020-04-13] MEDS ORDERED: CLOPIDOGREL 75 MG TABLET PO SCH (09:00)
--- NOTE | 2020-04-13 09:45 | NUR ---
TO BATHROOM VIA W/C AND PT HAD BM. BED BATH GIVEN AND BRUSHED TEETH. ONTO HOSPITAL BED.
[2020-04-13 10:00] VITALS: BP 123/72
[2020-04-13] MEDS ORDERED: ACETAMINOPHEN 325 MG TABLET ONE (10:24)
[2020-04-13] MEDS ORDERED: CLOPIDOGREL 75 MG TABLET ONE (10:24)
--- NOTE | 2020-04-13 10:29 | NUR ---
MEDICATED NOTED ON MAR FOR LOW LEFT BACK PAIN
[2020-04-13] MEDS ORDERED: ACETAMINOPHEN 325 MG TABLET PO PRN (10:30)
[2020-04-13] MEDS ORDERED: INSULIN REGULAR, HUMAN 100 UNIT/ML 3ML VIAL LOW DOSE SS SQ-INSULIN SCH (11:00)
--- NOTE | 2020-04-13 11:09 | NUR ---
RESTING WITH EYES CLOSED
--- NOTE | 2020-04-13 11:55 | NUR ---
RPEORT TO MARTA OMER. PT TO BE TRANSFERRED TO U IN ONE HOUR
[2020-04-13] MEDS ORDERED: INSULIN LISPRO SINGLE DOSE, ER SQ-INSULIN ONE (12:20)
== END 2020-04-13 13:37 | disposition home or self-care (01) ==
LOC: ED 20:26
DX: R62.7 Adult failure to thrive (principal); Z68.20 Body mass index [BMI] 20.0-20.9, adult; M54.9 Dorsalgia, unspecified; F20.9 Schizophrenia, unspecified; R53.1 Weakness; I10 Essential (primary) hypertension; E11.9 Type 2 diabetes mellitus without complications; E78.00 Pure hypercholesterolemia, unspecified; E78.5 Hyperlipidemia, unspecified; J45.909 Unspecified asthma, uncomplicated; Z86.59 Personal history of other mental and behavioral disorders; Z86.73 Personal history of transient ischemic attack (TIA), and cerebral infarction without residual deficits
CPT/HCPCS: 36415; 71045; 80053; 80307; 81001; 82550; 82962; 85025; 90471; 99285

== ENCOUNTER 2020-05-27 16:11 | Emergency (ER) | payer MEDICAID, MEDICARE ==
[~2020-05-27] VITALS: Ht 177.8 cm; Wt 80.0 kg
[~2020-05-27 16:11] MED LIST changes: +DULO20CA18 PO; +LINA5TAB PO; +MELA5TAB14 PO; +METF500T PO; -PANT40TA5 PO; +PANT40TA6 PO; +POLY17PO5 PO
--- NOTE | 2020-05-27 16:26 | NUR ---
ASSUMED CARE OF PATIENT. PATIENT REPORTS HE FEELS LIKE HE HAS MACARONI AND CHEESE STUCK IN HIS THROAT. PT IS SUPPOSED TO HAVE ESOPHAGEAL SURGERY NEXT WEEK. NO AIRWAY COMPROMISE NOTED. VS STABLE. CALL LIGHT IN PLACE. WILL CONTINUE TO MONITOR.
--- NOTE | 2020-05-27 16:27 | NUR ---
FRIENDS PHONE NUMBER: [phone]
--- NOTE | 2020-05-27 16:43 | NUR ---
PT REPORTS HE HAD A STROKE AND HAS LEFT SIDED DEFICITS. VS STABLE. NO ACUTE DISTRESS NOTED. PT IS A POOR HISTORIAN. CALL LIGHT IN PLACE. WILL CONTINUE TO MONITOR.
--- NOTE | 2020-05-27 16:50 | NUR ---
DR REINA IN ROOM
--- NOTE | 2020-05-27 16:54 | NUR ---
PT GIVEN WATER PER DR REINA. PT HELD WATER DOWN.
--- NOTE | 2020-05-27 16:58 | NUR ---
PM on Fluoro room. done at approx 6PM per scagliola mechanic
--- NOTE | 2020-05-27 17:06 | NUR ---
LAB IN ROOM
[2020-05-27 17:13] LABS: BASOPHILS # (AUTO) 0.03 x10^3/uL (0-0.1); BASOPHILS % (AUTO) 0 % (0-1); EOSINOPHILS % (AUTO) 3 % (1-7); LYMPHOCYTES # (AUTO) 1.76 x10^3/uL (1-3.4); LYMPHOCYTES % (AUTO) 26 % (22-44); MD NO; MEAN CORPUSCULAR HEMOGLOBIN 30.4 pg (27.5-34.5); MEAN CORPUSCULAR HGB CONC 33.2 g/dL (33.2-36.2); MEAN CORPUSCULAR VOLUME 91.6 fL (81-97); MEAN PLATELET VOLUME 6.4 fL (7.4-10.4); MONOCYTES # (AUTO) 0.77 x10^3/uL (0.2-0.8); MONOCYTES % (AUTO) 12 % (2-9); NEUTROPHILS # (AUTO) 3.95 x10^3/uL (1.8-6.8); NEUTROPHILS % (AUTO) 59 % (42-75); PLATELET COUNT 338 x10^3/uL (130-400); RED BLOOD COUNT 4.05 x10^6/uL (4.38-5.82); RED CELL DISTRIBUTION WIDTH 14.5 % (9.4-14.8)
[2020-05-27 17:27] LABS: ALKALINE PHOSPHATASE 81 U/L (45-117); BILIRUBIN,TOTAL 0.3 mg/dL (0.2-1.0)
[2020-05-27 17:28] LABS: ALANINE AMINOTRANSFERASE 19 U/L (12-78); ALBUMIN 3.2 g/dL (3.4-5.0); ANION GAP 6 mmol/L (5-15); CALCIUM 8.5 mg/dL (8.5-10.1); CHLORIDE 107 mmol/L (98-107); CREATININE 0.77 mg/dL (0.7-1.3)
--- NOTE | 2020-05-27 17:44 | NUR ---
PATIENT RESTING IN ROOM. REGUALR RESP. NO ACUTE DISTRESS NOTED. CALL LIGHT IN PLACE. WILL CONTNUE TO MONITOR.
--- NOTE | 2020-05-27 18:14 | NUR ---
PT RESTING IN ROOM. NO ACUTE DISTRESS NOTED. CALL LIGHT IN PLACE. WILL CONTINUE TO MONITOR.
--- NOTE | 2020-05-27 18:25 | NUR ---
PT WENT TO RADIOLOGY
[2020-05-27] MEDS ORDERED: OMNIPAQUE 350 MG/ML, 150 ML BOTTLE ONE (19:00)
--- NOTE | 2020-05-27 19:43 | NUR ---
BREAK RN: ERP AT BEDSIDE FOR RE-EVALUATION.
[2020-05-27 20:13] VITALS: BP 131/63
--- NOTE | 2020-05-27 20:13 | NUR ---
[place], GRANTS ADMINISTRATOR SPOKE TO SKILLED NURSING MEDICAL DIRECTOR OCCUPATIONAL HEALTH. MEDICAL DIRECTOR OCCUPATIONAL HEALTH TO BE AT THE HOME WHEN PT ARRIVES. PT IS ABLE TO SAFELY AMBULATE AROUND ROOM AND MOORE, AND GET SELF DRESSED. PT DISCHAGED PER DR TALBERT.
== END 2020-05-27 20:16 | disposition home or self-care (01) ==
LOC: ED 19:50
DX: K22.2 Esophageal obstruction (principal); R00.0 Tachycardia, unspecified; E11.9 Type 2 diabetes mellitus without complications; E78.5 Hyperlipidemia, unspecified; I25.10 Atherosclerotic heart disease of native coronary artery without angina pectoris; I11.9 Hypertensive heart disease without heart failure; J45.909 Unspecified asthma, uncomplicated
CPT/HCPCS: 36415; 74220; 80053; 85025; 99285; Q9967

== ENCOUNTER 2020-06-10 17:59 | Emergency (ER) | payer MEDICARE ==
[~2020-06-10] VITALS: Ht 177.8 cm; Wt 79.1 kg
--- NOTE | 2020-06-10 18:19 | NUR ---
Code Neuro called at 1746 after [facility] pre-alert. Patient registerred at 1759. Neurology paged at 1804. Dr. Oliver from Neurology called back at 1814.
[2020-06-10] MEDS ORDERED: OMNIPAQUE 350 MG/ML, 75ML BOTTLE ONE (18:27)
--- NOTE | 2020-06-10 18:30 | NUR ---
PT NOW ABLE TO SIT UP WITH ASSIST AND MOVE BOTH ARMS LEFT WEAKER THAN RIGHT TO GET HIS SHIRT OFF. SPEECH IS ALSO IMPROVING AND PT NOW CONVERSING FLUIDLY.
--- NOTE | 2020-06-10 18:33 | NUR ---
[facility] FROM [facility]. PER DELIVERY OF SHOPPING NEWS PT HAD GONE OUT TO SMOKE AND WHEN HE CAME BACK INTO THE HOUSE SHE NOTED INCREASED WEAKNESS ON HIS LEFT SIDE, DIFFICULTY SPEAKING AND NEW ONSET OF WEAKNESS ON THE RIGHT SIDE. LAST KNOWN WELL [id number]
--- NOTE | 2020-06-10 18:36 | NUR ---
LATE ENTRY FOR ARRIVAL @ 1800. DR TALBERT COMPLETED NEURO EXAM UPON ARRIVAL PT TAKEN TO CT ON [facility], CT COMPLETED W/O DIFFICULTY AND PT RTD TO ED TRAUMA ROOM 4 VIA ED [facility]. EKG COMPLETED, VSS. FSBS = 341
[2020-06-10 18:38] LABS: BASOPHILS # (AUTO) 0.02 x10^3/uL (0-0.1); BASOPHILS % (AUTO) 0 % (0-1); EOSINOPHILS % (AUTO) 2 % (1-7); LYMPHOCYTES # (AUTO) 1.24 x10^3/uL (1-3.4); LYMPHOCYTES % (AUTO) 19 % (22-44); MD NO; MEAN CORPUSCULAR HEMOGLOBIN 30.2 pg (27.5-34.5); MEAN CORPUSCULAR HGB CONC 33.1 g/dL (33.2-36.2); MEAN PLATELET VOLUME 6.7 fL (7.4-10.4); MONOCYTES # (AUTO) 0.57 x10^3/uL (0.2-0.8); MONOCYTES % (AUTO) 9 % (2-9); NEUTROPHILS % (AUTO) 71 % (42-75); PLATELET COUNT 342 x10^3/uL (130-400); RED BLOOD COUNT 4.34 x10^6/uL (4.38-5.82); RED CELL DISTRIBUTION WIDTH 14.2 % (9.4-14.8)
--- NOTE | 2020-06-10 18:46 | NUR ---
DR HOLCOMB VIA TELE NEURO. EXAM COMPLETED.
--- NOTE | 2020-06-10 18:47 | NUR ---
DR TALBERT AT BEDSIDE. ASSESSMENT REVIEWED, POC DISCUSSED AND QUESTIONS ANSWERED.
[2020-06-10 19:00] LABS: INTERNATIONAL NORMALIZED RATIO 0.95 (0.93-1.1); PROTHROMBIN TIME 9.8 Seconds (9.6-11.5)
--- NOTE | 2020-06-10 19:04 | NUR ---
[facility], [facility] [phone]. AD[address]ESS [address] [place] [address]
--- NOTE | 2020-06-10 19:07 | NUR ---
WESTONAR RPT TO NEGRA GRUBBS
--- NOTE | 2020-06-10 19:23 | NUR ---
ASSUMED CARE OF PT. PT ON MONITOR. PT DENIES NEEDS AT THIS TIME.
--- NOTE | 2020-06-10 20:57 | NUR ---
received report from NEGRA Rabago.
--- NOTE | 2020-06-10 21:48 | NUR ---
tp: attempted to call erick mcmanus, left vm
--- NOTE | 2020-06-10 21:52 | NUR ---
spoke with yonathan, she is good with poc to dc and she will meet him as she stated she is "right next door"
[2020-06-10 22:35] VITALS: BP 123/76
--- NOTE | 2020-06-10 22:35 | NUR ---
patient discharged. cab voucher provided.
== END 2020-06-10 22:37 | disposition home or self-care (01) ==
LOC: ED 18:05
DX: I63.9 Cerebral infarction, unspecified (principal); R41.82 Altered mental status, unspecified; R00.0 Tachycardia, unspecified
CPT/HCPCS: 70450; 70496; 70498; 70551; 80047; 82962; 85025; 85610; 85730; 93005; 99285; Q9967

== ENCOUNTER 2020-07-03 16:12 | Emergency (ER) | payer MEDICARE ==
[~2020-07-03] VITALS: Ht 177.8 cm; Wt 80.0 kg
[2020-07-03 16:14] VITALS: BP 122/79
--- NOTE | 2020-07-03 16:35 | NUR ---
PT NOW DENYING SI TO KAMILAH BOYLE AND STATES THAT PRIMARY COMPLAINT IS THAT A "PILL IS STUCK" IN HIS THROAT. AIRWAY PATENT, SPEECH CLEAR. NO DROOLING OR MUFFLED SPEECH NOTED. ERP EVAL IN PROGRESS
--- NOTE | 2020-07-03 16:39 | NUR ---
PT TAKING PO FLUIDS WO DIFFICULTY
--- NOTE | 2020-07-03 17:59 | NUR ---
PT REQUESTING DC. ERP AWARE.
--- NOTE | 2020-07-03 18:26 | NUR ---
ASSUMED CARE FOR DC ONLYPatient/Caregiver given discharge instructions and they have confirmed that they understand the instructions. Patient ambulatory with steady gait.
== END 2020-07-03 18:28 | disposition home or self-care (01) ==
LOC: ED 18:00
DX: R13.10 Dysphagia, unspecified (principal); I10 Essential (primary) hypertension; E11.9 Type 2 diabetes mellitus without complications; F17.200 Nicotine dependence, unspecified, uncomplicated
CPT/HCPCS: 99283

== ENCOUNTER 2020-08-01 09:13 | Emergency (ER) | payer MEDICARE ==
[~2020-08-01] VITALS: Ht 170.2 cm; Wt 59.0 kg
[~2020-08-01 09:13] MED LIST changes: +ACID1TAB7 PO; +FLUO10CA15 PO
--- NOTE | 2020-08-01 10:27 | NUR ---
PT TO ROOM FROM LOBBY VIA W/C. NO ACUTE DISTRESS NOTED. PT CHANGED INTO HOSPITAL GOWN. AUTO BP AND PULSE OX IN PLACE.
[2020-08-01] MEDS ORDERED: SODIUM CHLORIDE FLUSH 10ML SYR IVF ONE (12:30)
[2020-08-01] MEDS ORDERED: GLUCAGON 1 MG IVPush ONE (12:30)
[2020-08-01] MEDS ORDERED: MIDAZOLAM 1 MG/ML, 5ML ONE (12:32)
[2020-08-01] MEDS ORDERED: FENTANYL PF 100 MCG/2ML ONE (12:32)
--- NOTE | 2020-08-01 12:47 | NUR ---
IV PLACED. DR MORGAN AT BEDSIDE DISCUSSED ENDOSCOPY PROCEDURE TO PT. ENDO TEAM AT BEDSIDE.
--- NOTE | 2020-08-01 13:15 | NUR ---
post EGD, pt in bed , vss, on room air, a & o x4,
--- NOTE | 2020-08-01 14:49 | NUR ---
PT FULLY AWAKE, BRITTON. ASKING TO USE URINAL. "WHEN CAN I GO? CAN I GET A CAB VOUCHER" NO ACUTE DISTRESS NOTED.
--- NOTE | 2020-08-01 15:26 | NUR ---
ASSUMED CARE FOR DISCHARGE ONLY CONFIRMED PT ADDRESS [address] [facility] [address]. PROVIDED TAXI SLIP HOME Patient/Caregiver given discharge instructions and they have confirmed that they understand the instructions. Patient ambulatory with steady gait.
[2020-08-01 15:27] VITALS: BP 130/76
== END 2020-08-01 15:28 | disposition home or self-care (01) ==
LOC: ED 11:39
DX: T18.128A Food in esophagus causing other injury, initial encounter (principal); K20.90 Esophagitis, unspecified without bleeding; R06.02 Shortness of breath; R05 Cough; R07.0 Pain in throat; I10 Essential (primary) hypertension; E11.9 Type 2 diabetes mellitus without complications; I25.10 Atherosclerotic heart disease of native coronary artery without angina pectoris; E78.5 Hyperlipidemia, unspecified; E78.00 Pure hypercholesterolemia, unspecified; F17.200 Nicotine dependence, unspecified, uncomplicated; Z86.73 Personal history of transient ischemic attack (TIA), and cerebral infarction without residual deficits; X58.XXXA Exposure to other specified factors, initial encounter; Y93.89 Activity, other specified; Y92.89 Other specified places as the place of occurrence of the external cause; Y99.8 Other external cause status
CPT/HCPCS: 71045; 74220; 99285; J2250; J3010

== ENCOUNTER 2020-09-22 00:43 | Inpatient (IN) | payer MEDICARE ==
[~2020-09-22] VITALS: Ht 172.7 cm; Wt 72.5 kg
[~2020-09-22 00:43] MED LIST changes: -CLIN300C8 PO; +CLIN300C9 PO; -ESCI10TA PO; +ESCI10TA5 PO; -NICO-487 TD; +NICO-587 TD
--- NOTE | 2020-09-22 00:59 | NUR ---
bib [facility] for right sided cp x 1 day. +nausea. also states has had a cough for "quite a while" ASA and SL nitro given by ems captain's assistant, with effect. ekg done upon pt arrival to ed. pt attached to all monitors and call light on lap.
--- NOTE | 2020-09-22 01:10 | NUR ---
REPORT TO PRIMARY RN, RAFFY
[2020-09-22 02:21] LABS: BASOPHILS % (AUTO) 1 % (0-1); EOSINOPHILS % (AUTO) 0 % (1-7); LYMPHOCYTES % (AUTO) 12 % (22-44); MEAN CORPUSCULAR HGB CONC 32.7 g/dL (33.2-36.2); MEAN PLATELET VOLUME 6.7 fL (7.4-10.4); MONOCYTES % (AUTO) 7 % (2-9); NEUTROPHILS % (AUTO) 80 % (42-75); PLATELET COUNT 433 x10^3/uL (130-400); RED BLOOD COUNT 4.28 x10^6/uL (4.38-5.82); RED CELL DISTRIBUTION WIDTH 16.7 % (9.4-14.8)
[2020-09-22 02:23] LABS: MD NO
[2020-09-22 02:24] LABS: ALANINE AMINOTRANSFERASE 13 U/L (12-78); ALBUMIN 2.8 g/dL (3.4-5.0); ANION GAP 6 mmol/L (5-15); CHLORIDE 101 mmol/L (98-107); CREATININE 0.77 mg/dL (0.7-1.3)
[2020-09-22 02:28] LABS: ALKALINE PHOSPHATASE 123 U/L (45-117); BILIRUBIN,TOTAL 0.1 mg/dL (0.2-1.0); TOTAL PROTEIN 6.5 g/dL (6.4-8.2); TROPONIN I < 0.015 ng/mL (0.000-0.045)
--- NOTE | 2020-09-22 02:47 | NUR ---
pt assisted to use urinal at this time. nad, laying on gurney, appears comfortable, no acute changes in condition, wctm. denies additional questiosn or needs, bed in lowest, rails engaged, call light on lap, waiting for admit bed.
--- NOTE | 2020-09-22 03:24 | NUR ---
pt reports no longer taking any medications at home. when asked when he stopped, pt states "i dont know." wctm. waiting for admit bed.
[2020-09-22] MEDS ORDERED: SODIUM CHLORIDE 0.9% 1,000 ML IV SCH (04:00)
[2020-09-22] MEDS ORDERED: DOCUSATE 100 MG CAPSULE PO PRN (04:00)
[2020-09-22] MEDS ORDERED: NITROGLYCERIN 0.4 MG BOTTLE (25 TABS) SL PRN (04:00)
[2020-09-22 05:49] VITALS: BP 124/79
[2020-09-22] MEDS ORDERED: OMEPRAZOLE 20 MG CAPSULE.DR PO SCH (06:00)
[2020-09-22] MEDS: ASPIRIN 81 MG TABLET EC PO SCH (06:31)
[2020-09-22] MEDS: CARVEDILOL 3.125 MG TABLET PO SCH (06:34)
[2020-09-22 07:25] VITALS: BP 153/90
[2020-09-22] MEDS ORDERED: INSULIN GLARGINE 100 UNITS/ML, PEN SQ-INSULIN SCH ×2 (07:30→17:00)
[2020-09-22] MEDS: PALIPERIDONE 3 MG TAB.ER.24 PO SCH (08:13)
[2020-09-22] MEDS: AMLODIPINE 2.5 MG TABLET PO SCH (08:14)
[2020-09-22] MEDS: LISINOPRIL 5 MG TABLET PO SCH (08:14)
[2020-09-22] MEDS: FLUOXETINE 10 MG CAP PO SCH (08:14)
[2020-09-22 08:16] LABS: TROPONIN I < 0.015 ng/mL (0.000-0.045)
[2020-09-22] MEDS: INSULIN LISPRO 100 UNITS/ML, PEN SQ-INSULIN SCH ×4 (08:27→23:07)
[2020-09-22 13:10] VITALS: BP 101/67
[2020-09-22] MEDS ORDERED: D5%-0.9% NACL 1,000 ML IV SCH (13:30)
[2020-09-22] MEDS ORDERED: hydrALAzine 20 MG/ML, 1ML IV PRN (13:30)
[2020-09-22 14:12] LABS: TROPONIN I < 0.015 ng/mL (0.000-0.045)
[2020-09-22 20:24] VITALS: BP 108/74
[2020-09-22] MEDS: ATORVASTATIN 20 MG TABLET PO SCH (23:07)
[2020-09-22] MEDS: morphine SULFATE 10 MG/ML, 1ML IV PRN (23:12)
[2020-09-23] VITALS (8 sets, daily range): BP systolic 99–133; BP diastolic 65–85
[2020-09-23] MEDS: CARVEDILOL 3.125 MG TABLET PO SCH (06:47)
[2020-09-23] MEDS: ASPIRIN 81 MG TABLET EC PO SCH (06:47)
[2020-09-23] MEDS ORDERED: NITROGLYCERIN 0.4 MG BOTTLE (25 TABS) SL ONE (08:00)
[2020-09-23] MEDS: INSULIN LISPRO 100 UNITS/ML, PEN SQ-INSULIN SCH ×4 (08:14→20:38)
[2020-09-23] MEDS: INSULIN GLARGINE 100 UNITS/ML, PEN SQ-INSULIN SCH ×2 (08:14→15:56)
[2020-09-23] MEDS: PALIPERIDONE 3 MG TAB.ER.24 PO SCH (08:19)
[2020-09-23] MEDS: FLUOXETINE 10 MG CAP PO SCH (08:19)
[2020-09-23] MEDS: SUCRALFATE 1 GM/10 ML UDC PO SCH ×4 (08:20→20:38)
[2020-09-23] MEDS: NITROGLYCERIN OINT 2%, 1GM TP SCH ×3 (08:29→20:38)
[2020-09-23] MEDS ORDERED: PANTOPRAZOLE 40 MG IV IVPush SCH (09:00)
[2020-09-23] MEDS: AMLODIPINE 2.5 MG TABLET PO SCH (10:26)
[2020-09-23] MEDS: LISINOPRIL 5 MG TABLET PO SCH (10:26)
[2020-09-23] MEDS ORDERED: CHLORHEXIDINE 15 ML UDC ONE (11:15)
[2020-09-23] MEDS ORDERED: TRIAMCINOLONE ACETONIDE 40 MG/ML, 1ML MC ONE (11:30)
[2020-09-23] MEDS ORDERED: CHLORHEXIDINE 15 ML UDC MM ONE (11:30)
[2020-09-23] MEDS: morphine SULFATE 10 MG/ML, 1ML IV PRN ×2 (14:36→20:39)
[2020-09-23] MEDS ORDERED: OMEPRAZOLE 20 MG CAPSULE.DR PO SCH (16:00)
[2020-09-23] MEDS: PANTOPRAZOLE GRAN. PKT 40 MG PO SCH (20:38)
[2020-09-23] MEDS: ATORVASTATIN 20 MG TABLET PO SCH (20:38)
[2020-09-24 01:06] VITALS: BP 101/67
[2020-09-24] MEDS: NITROGLYCERIN OINT 2%, 1GM TP SCH (02:30)
[2020-09-24] MEDS: ASPIRIN 81 MG TABLET EC PO SCH (06:16)
[2020-09-24] MEDS: CARVEDILOL 3.125 MG TABLET PO SCH (06:17)
[2020-09-24 07:26] VITALS: BP 125/79
[2020-09-24] MEDS: SUCRALFATE 1 GM/10 ML UDC PO SCH ×4 (08:44→20:43)
[2020-09-24] MEDS: PALIPERIDONE 3 MG TAB.ER.24 PO SCH (08:44)
[2020-09-24] MEDS: AMLODIPINE 2.5 MG TABLET PO SCH (08:45)
[2020-09-24] MEDS: INSULIN LISPRO 100 UNITS/ML, PEN SQ-INSULIN SCH ×4 (08:45→20:45)
[2020-09-24] MEDS: LISINOPRIL 5 MG TABLET PO SCH (08:45)
[2020-09-24] MEDS: FLUOXETINE 10 MG CAP PO SCH (08:45)
[2020-09-24] MEDS: PANTOPRAZOLE GRAN. PKT 40 MG PO SCH ×2 (08:46→20:43)
[2020-09-24] MEDS: INSULIN GLARGINE 100 UNITS/ML, PEN SQ-INSULIN SCH ×2 (08:46→16:24)
[2020-09-24] MEDS ORDERED: PROPOFOL 10 MG/ML, 20ML ONE (11:30)
[2020-09-24 13:26] VITALS: BP 110/75
[2020-09-24] MEDS: HYDROcodone/APAP 5/325 TABLET PO PRN (16:55)
[2020-09-24 20:09] VITALS: BP 127/84
[2020-09-24 20:12] VITALS: BP 127/84
[2020-09-24] MEDS: ATORVASTATIN 20 MG TABLET PO SCH (20:43)
[2020-09-25 00:31] VITALS: BP 122/82
[2020-09-25] MEDS: HYDROcodone/APAP 5/325 TABLET PO PRN (06:36)
[2020-09-25] MEDS: ASPIRIN 81 MG TABLET EC PO SCH (06:37)
[2020-09-25] MEDS: CARVEDILOL 3.125 MG TABLET PO SCH (06:37)
[2020-09-25] MEDS ORDERED: INSULIN GLARGINE 100 UNITS/ML, PEN SQ-INSULIN SCH (07:30)
[2020-09-25 07:40] VITALS: BP 119/74
[2020-09-25] MEDS ORDERED: ATOR20TA37 PO (07:48)
[2020-09-25] MEDS ORDERED: NEED-188 (07:48)
[2020-09-25] MEDS ORDERED: PALI3TAB11 PO (07:48)
[2020-09-25] MEDS ORDERED: FLUO10CA15 PO (07:48)
[2020-09-25] MEDS ORDERED: AMLO2.5T5 PO (07:48)
[2020-09-25] MEDS ORDERED: INSU100I13 SQ-INSULIN (07:48)
[2020-09-25] MEDS ORDERED: CARV3.1212 PO (07:48)
[2020-09-25] MEDS ORDERED: SUCR1ORA5 PO (07:48)
[2020-09-25] MEDS ORDERED: PANT40GR PO (07:48)
[2020-09-25] MEDS ORDERED: LANC1KIT (07:48)
[2020-09-25] MEDS ORDERED: ISOP1TOW (07:48)
[2020-09-25] MEDS ORDERED: LISI5TAB7 PO (07:48)
[2020-09-25] MEDS ORDERED: ASPI81TA45 PO (07:48)
[2020-09-25] MEDS: SUCRALFATE 1 GM/10 ML UDC PO SCH (08:52)
[2020-09-25] MEDS: LISINOPRIL 5 MG TABLET PO SCH (08:53)
[2020-09-25] MEDS: INSULIN LISPRO 100 UNITS/ML, PEN SQ-INSULIN SCH (08:53)
[2020-09-25] MEDS: FLUOXETINE 10 MG CAP PO SCH (08:53)
[2020-09-25] MEDS: AMLODIPINE 2.5 MG TABLET PO SCH (08:54)
[2020-09-25] MEDS: PANTOPRAZOLE GRAN. PKT 40 MG PO SCH (08:54)
[2020-09-25] MEDS: PALIPERIDONE 3 MG TAB.ER.24 PO SCH (08:54)
== END 2020-09-25 10:37 | disposition home or self-care (01) | DRG 382 ==
LOC: ED 03:19 → INTOOBSV 03:38 → EDIP 03:38 → 5SO 05:43 → OBSVTOIN 09-24 09:40 → DCLOUNGE 09-25 10:31
PROVIDERS: ADMIT Family Medicine; ATTEND Internal Medicine
PROC: 0DB38ZX Excision of Lower Esophagus, Via Natural or Artificial Opening Endoscopic, Diagnostic (ICD-10-PCS; 2020-09-23)
PROC: 0D748ZZ Dilation of Esophagogastric Junction, Via Natural or Artificial Opening Endoscopic (ICD-10-PCS; principal; 2020-09-23 12:30)
DX: K22.10 Ulcer of esophagus without bleeding (principal); K22.2 Esophageal obstruction; E10.65 Type 1 diabetes mellitus with hyperglycemia; E78.00 Pure hypercholesterolemia, unspecified; E78.5 Hyperlipidemia, unspecified; F17.200 Nicotine dependence, unspecified, uncomplicated; F20.9 Schizophrenia, unspecified; F31.9 Bipolar disorder, unspecified; G89.29 Other chronic pain; I10 Essential (primary) hypertension; R07.89 Other chest pain; I25.10 Atherosclerotic heart disease of native coronary artery without angina pectoris; J45.909 Unspecified asthma, uncomplicated; K44.9 Diaphragmatic hernia without obstruction or gangrene; Z86.73 Personal history of transient ischemic attack (TIA), and cerebral infarction without residual deficits; Z87.19 Personal history of other diseases of the digestive system; I25.2 Old myocardial infarction; Z91.14 Patient's other noncompliance with medication regimen; Z88.0 Allergy status to penicillin; Z88.2 Allergy status to sulfonamides; Z79.899 Other long term (current) drug therapy
CPT/HCPCS: 36415; 71045; 74220; 80053; 82962; 84484; 85025; 87635; 88305; 88312; 93005; G0378; J2704; J3301; J7042; C1725; C9113; J1815; J2270; J7030

== ENCOUNTER 2020-09-30 19:28 | Emergency (ER) | payer MEDICARE ==
[~2020-09-30] VITALS: Ht 170.2 cm; Wt 70.0 kg
[~2020-09-30 19:28] MED LIST changes: +ISOP1TOW; +LANC1KIT; +NEED-188; +PANT40GR PO; +SUCR1ORA5 PO
--- NOTE | 2020-09-30 20:25 | NUR ---
pt to room from lobby
[2020-09-30] MEDS ORDERED: ASPIRIN 81 MG TABLET CHEW PO ONE (21:00)
[2020-09-30 21:20] LABS: BASOPHILS % (AUTO) 1 % (0-1); EOSINOPHILS % (AUTO) 1 % (1-7); LYMPHOCYTES % (AUTO) 15 % (22-44); MD NO; MEAN CORPUSCULAR HEMOGLOBIN 26.5 pg (27.5-34.5); MEAN CORPUSCULAR HGB CONC 32.5 g/dL (33.2-36.2); MEAN PLATELET VOLUME 6.6 fL (7.4-10.4); MONOCYTES % (AUTO) 7 % (2-9); NEUTROPHILS % (AUTO) 76 % (42-75); PLATELET COUNT 438 x10^3/uL (130-400); RED BLOOD COUNT 4.26 x10^6/uL (4.38-5.82); RED CELL DISTRIBUTION WIDTH 16.7 % (9.4-14.8)
[2020-09-30 21:30] LABS: ALBUMIN 2.8 g/dL (3.4-5.0); ANION GAP 10 mmol/L (5-15); CALCIUM 8.3 mg/dL (8.5-10.1); CHLORIDE 106 mmol/L (98-107); CREATININE 0.68 mg/dL (0.7-1.3)
[2020-09-30] MEDS ORDERED: ASPIRIN 81 MG TABLET CHEW ONE (21:33)
[2020-09-30 21:34] LABS: TROPONIN I < 0.015 ng/mL (0.000-0.045)
[2020-09-30 21:35] VITALS: BP 159/83
== END 2020-09-30 22:20 | disposition home or self-care (01) ==
LOC: ED 21:01
DX: R07.89 Other chest pain (principal); I25.10 Atherosclerotic heart disease of native coronary artery without angina pectoris; E78.5 Hyperlipidemia, unspecified; E11.65 Type 2 diabetes mellitus with hyperglycemia; E78.00 Pure hypercholesterolemia, unspecified; J45.909 Unspecified asthma, uncomplicated; Z86.73 Personal history of transient ischemic attack (TIA), and cerebral infarction without residual deficits
CPT/HCPCS: 36415; 71045; 80048; 82040; 84484; 85025; 93005; 99285

== ENCOUNTER 2020-10-28 16:03 | Emergency (ER) | payer MEDICARE ==
[~2020-10-28] VITALS: Ht 170.2 cm; Wt 66.0 kg
[~2020-10-28 16:03] MED LIST changes: -ASPI-515 PO; +ASPI-963 PO; -ESCI10TA5 PO; +ESCI10TA97 PO; +HYDR-1067 PO; -HYDR-3240 PO
[2020-10-28 16:10] VITALS: BP 157/109
--- NOTE | 2020-10-28 16:10 | NUR ---
pt ZANDRA BANERJEE from home c/o SI, without plan pt reports that he is feeling suicidal x1 month and that he is sad because he doesn't like where he lives and doesn'tr want to stay there anymore pt is in no apparent resp. distress. no obvious injury. pt is ambulatory without assist pt undressed and belongings placed into labeled bags and placed in secure locker room secure. sitter present for safety
--- NOTE | 2020-10-28 16:35 | NUR ---
mayda Aquino HOTEL SERVICE MANAGER and Jane SW have been to bedside for eval. providers very familiar with this pt pt is not to be placed on legal hold per R[place]a to arrange transport and F/U
--- NOTE | 2020-10-28 17:06 | NUR ---
this pt was D/C by another RN
== END 2020-10-28 17:27 ==
LOC: ED 16:30
DX: R45.851 Suicidal ideations (principal)
CPT/HCPCS: 99283

== ENCOUNTER 2021-04-30 19:17 | Emergency (ER) | payer MEDICARE ==
[~2021-04-30] VITALS: Ht 188 cm; Wt 75.0 kg
[~2021-04-30 19:17] MED LIST changes: +ATOR40TA78 PO; -FOLI0.4T2 PO; +FOLI0.4T5 PO; -HYDR-1067 PO; +HYDR-2214 PO; +LACT10SO24 PO; +METF500T17 PO; +OLAN5TAB69 PO; -OLAN5TAB9 PO
--- NOTE | 2021-04-30 20:12 | NUR ---
PER [place] TRIANA PT IS TO BE HELD IN ER TILL HE CAN BE DISCHARGED TO LONG TERM IN AM
--- NOTE | 2021-05-01 00:58 | NUR ---
PT TO ROOM VIA PERSONAL WHEELCHAIR. RESTING COMFORTABLY ON GURNEY. PRIMARY RN AT BEDSIDE
--- NOTE | 2021-05-01 01:13 | NUR ---
RECEIVED REPORT FROM NEGRA ORTIZ
--- NOTE | 2021-05-01 02:16 | NUR ---
BREAK RN: PT SUPINE ON GURNEY RESTING COMFORTABLY. NADN, VSS. PT DENIES ANY NEEDS AT THIS TIME. CALL LIGHT AND PERSONAL BELONGINGS WITHIN REACH.
--- NOTE | 2021-05-01 03:41 | NUR ---
pt resting on gurney, denies needs at this time.
--- NOTE | 2021-05-01 04:11 | NUR ---
pt resting on gurney, denies needs at this time.
--- NOTE | 2021-05-01 06:22 | NUR ---
resting on gurney, denies needs at this time.
[2021-05-01 10:21] VITALS: BP 134/74
--- NOTE | 2021-05-01 10:21 | NUR ---
PT REC'VD DISCHARGE INSTRUCTIONS AND EDUCATION. PT HAD NO FURTHER QUESTIONS. PT ADVISED HE WAS ASSIGNED BED 340 AT THE ASSISTED. PT IN WHEELCHAIR TO IL AREA WITH TAXI VOUCHER.
== END 2021-05-01 10:49 | disposition home or self-care (01) ==
LOC: ED 05-01 01:58 → UNDOADMOB 05-01 03:27 → EDIP 05-01 03:27 → ED 05-01 10:43
DX: M62.81 Muscle weakness (generalized) (principal)
CPT/HCPCS: 99283

== ENCOUNTER 2021-05-03 08:14 | Emergency (ER) | payer MEDICARE, MEDICAID ==
[~2021-05-03] VITALS: Ht 160 cm; Wt 55.0 kg
[2021-05-03 08:14] VITALS: BP 123/77
--- NOTE | 2021-05-03 08:18 | NUR ---
TYLER from [facility] after pt called 911 for left lower leg wound for approx 2 days. Pt wc bound hx CVA unknown how injury occurred. On arrival wound unwrapped left lower lateral dickens with abrasions, no suturable lac. Pt unknown of his medications he takes, reports being covid vaccinated but doesn't know which one. Denies etoh, drugs, tobacco every day. He is a/ox4. WC was dropped off by medics. Allg: pcn, sulfa Addendum: 05/03/21 at 0823 by [email or web address] RIGHT Lower LEG
[2021-05-03] MEDS ORDERED: BACITRACIN ZINC OINT 500U/GM, 0.9 GM ONE (08:21)
--- NOTE | 2021-05-03 08:24 | NUR ---
Wound cleaned and dressed. Pt dc in his own wc back to fdc, pt verbalizes understanding of instruct and f/u.
--- NOTE | 2021-05-03 08:32 | NUR ---
ABX to wound covered with dressing, encouraged pt not to itch.
== END 2021-05-03 08:35 | disposition home or self-care (01) ==
LOC: ED 08:20
DX: S80.811A Abrasion, right lower leg, initial encounter (principal); E11.9 Type 2 diabetes mellitus without complications; I10 Essential (primary) hypertension; I25.10 Atherosclerotic heart disease of native coronary artery without angina pectoris; E78.5 Hyperlipidemia, unspecified; X58.XXXA Exposure to other specified factors, initial encounter; Y93.89 Activity, other specified; Y92.89 Other specified places as the place of occurrence of the external cause; Y99.8 Other external cause status
CPT/HCPCS: 99283

== ENCOUNTER 2021-05-16 11:39 | Emergency (ER) | payer MEDICARE, MEDICAID ==
[~2021-05-16] VITALS: Ht 165.1 cm; Wt 61.4 kg
[~2021-05-16 11:39] MED LIST changes: -LISI2.5T PO; +LISI2.5T12 PO; -QUET100T PO; +QUET100T2 PO
--- NOTE | 2021-05-16 13:30 | NUR ---
president financial institution note: Pt to room from lobby.
--- NOTE | 2021-05-16 13:42 | NUR ---
PT TO ROOM 6 W/ C/O NEEDING A NEW BANDAGE TO R ARCE. PT NOTED TO HAVE CLEAN DRY SKIN UNDER DRESSING W/ SCABS TO LEG. NO WOUNDS NOTED. PT STATES HX DM 2. PT RESTING ON GURNEY. NADN. MONITORS APPLIED. VSS.
[2021-05-16] MEDS ORDERED: NEOSPORIN OINT. PKT 1 PACKET ONE (13:49)
[2021-05-16 13:53] VITALS: BP 130/73
== END 2021-05-16 14:08 | disposition home or self-care (01) ==
LOC: ED 14:01
DX: S80.811A Abrasion, right lower leg, initial encounter (principal); I25.10 Atherosclerotic heart disease of native coronary artery without angina pectoris; E78.5 Hyperlipidemia, unspecified; I10 Essential (primary) hypertension; E11.65 Type 2 diabetes mellitus with hyperglycemia; E78.00 Pure hypercholesterolemia, unspecified; Z86.73 Personal history of transient ischemic attack (TIA), and cerebral infarction without residual deficits; X58.XXXA Exposure to other specified factors, initial encounter; Y93.89 Activity, other specified; Y92.89 Other specified places as the place of occurrence of the external cause; Y99.8 Other external cause status
CPT/HCPCS: 99282

== ENCOUNTER 2021-05-20 20:24 | Emergency (ER) | payer MEDICARE, MEDICAID ==
[~2021-05-20] VITALS: Ht 170.2 cm; Wt 68.0 kg
--- NOTE | 2021-05-20 20:35 | NUR ---
naheed from [facility]. pt states he has been having trouble swallowing and walking hx of strokes, denies fever/chills, n/v, cp, sob no focal deficits, no signs stroke symtpomss present attached to card/sp02/bp monitors. vss. nadn bed in low, railsd engaged, call light on lap
--- NOTE | 2021-05-20 21:28 | NUR ---
PT GIVEN SPRITE FOR PO CHALLENGE
--- NOTE | 2021-05-20 21:39 | NUR ---
po challenge failed, fluids regurgitated and pt spit everything back out. vss, wctm. pt given urinal to urinate
--- NOTE | 2021-05-20 22:27 | NUR ---
PT OFF UNIT IN IMAGING
--- NOTE | 2021-05-20 22:53 | NUR ---
PT RESTING ON GURNEY RESP EVEN AND UNLABORED NADN, VSS NO NEEDS AT THIS TIME. pt back from imaging. vss. nadn. attached to all monitors. pt urinated in urinal concentrated yellow urine. wctm
[2021-05-20] MEDS ORDERED: ONDANSETRON 2MG/ML, 2ML IVPush ONE (23:30)
[2021-05-20] MEDS ORDERED: PROPOFOL 10 MG/ML, 20ML IVPush ONE (23:30)
[2021-05-20] MEDS ORDERED: SODIUM CHLORIDE FLUSH 10ML SYR IVF ONE (23:30)
[2021-05-20] MEDS ORDERED: SODIUM CHLORIDE 0.9% 1,000ML IVBOLUS ONE (23:30)
[2021-05-20] MEDS ORDERED: PROPOFOL 10 MG/ML, 20ML ONE ×2 (23:32→23:51)
[2021-05-20] MEDS ORDERED: ONDANSETRON 2MG/ML, 2ML ONE (23:32)
--- NOTE | 2021-05-20 23:46 | NUR ---
REPORT GIVEN TO ERROL TO TAKE OVER PT WHILE ENDOSCOPY PROCEDURE OCCURS. PT IN TRAUMA 1. VSS, NADN. ALL SAFETY PRECAUTIONS PUT INTO PACE FOR PROCEDURE. SUCTION, O2, ETCO2, AMBU BAG, ETC..
--- NOTE | 2021-05-20 23:48 | NUR ---
CONSENT SIGNED, PUT INTO CHARTS
--- NOTE | 2021-05-21 00:49 | NUR ---
PT AWAKE A & O X 4 SEDATION COMPLETE
[2021-05-21 00:51] VITALS: BP 129/57
== END 2021-05-21 01:22 | disposition home or self-care (01) ==
LOC: ED 21:58
DX: T18.128A Food in esophagus causing other injury, initial encounter (principal); X58.XXXA Exposure to other specified factors, initial encounter; Y93.89 Activity, other specified; Y92.89 Other specified places as the place of occurrence of the external cause; Y99.8 Other external cause status; Z72.9 Problem related to lifestyle, unspecified
CPT/HCPCS: 43247; 74220; 96361; 96374; 99285; J2405; J7030

== ENCOUNTER 2021-06-04 12:22 | Emergency (ER) | payer MEDICARE, MEDICAID ==
[~2021-06-04] VITALS: Ht 170.2 cm; Wt 70.0 kg
[2021-06-04 17:27] VITALS: BP 109/80
--- NOTE | 2021-06-04 17:59 | NUR ---
d/c per erp "as patient able to clear esophageal obstruction naturally." patient confirms. no other assessable abnormalities provided with taxi voucher and asked to f/u with social media sr strategy manager at [facility]
== END 2021-06-04 18:00 | disposition home or self-care (01) ==
LOC: ED 13:56
DX: T18.128A Food in esophagus causing other injury, initial encounter (principal); X58.XXXA Exposure to other specified factors, initial encounter; Y93.89 Activity, other specified; Y92.89 Other specified places as the place of occurrence of the external cause; Y99.8 Other external cause status; F17.200 Nicotine dependence, unspecified, uncomplicated
CPT/HCPCS: 99281

== ENCOUNTER 2021-06-09 15:43 | Emergency (ER) | payer MEDICARE, MEDICAID ==
[~2021-06-09] VITALS: Ht 175.3 cm; Wt 70.0 kg
[2021-06-09 16:03] VITALS: BP 128/68
--- NOTE | 2021-06-09 16:21 | NUR ---
PT TYLER FROM [facility] FOR SI NO PLAN. DENIES ETOH/DRUG USE TODAY. PERSONAL BELONGINGS COLLECTED AND PLACED IN ED SECURITY LOCKER. ERMD LAW AT BEDSIDE FOR EVAL.
--- NOTE | 2021-06-09 16:35 | NUR ---
PSYCH LAW MELO AT BEDSIDE FOR EVAL
--- NOTE | 2021-06-09 17:06 | NUR ---
meal tray provided, riosn. sitter within view, all secutiry precautions in place
[2021-06-09 17:21] LABS: AMPHETAMINE SCREEN, URINE Negative (Negative); BARBITURATE SCREEN, URINE Negative (Negative); BENZODIAZEPINE SCREEN, URINE Negative (Negative); CANNABINOID SCREEN, URINE Negative (Negative); COCAINE SCREEN, URINE Negative (Negative); METHADONE SCREEN, URINE Negative (Negative); OPIATE SCREEN, URINE Negative (Negative)
[2021-06-09 17:22] LABS: ALBUMIN 2.9 g/dL (3.4-5.0); ANION GAP 6 mmol/L (5-15); CALCIUM 8.8 mg/dL (8.5-10.1); CHLORIDE 100 mmol/L (98-107); SALICYLATE LEVEL < 1.7 mg/dL (2.8-20.0)
[2021-06-09 17:25] LABS: ALANINE AMINOTRANSFERASE 16 U/L (12-78); ALKALINE PHOSPHATASE 136 U/L (45-117); BILIRUBIN,TOTAL 0.3 mg/dL (0.2-1.0); CREATININE 0.88 mg/dL (0.7-1.3); TOTAL PROTEIN 7.1 g/dL (6.4-8.2)
[2021-06-09 17:27] LABS: BASOPHILS % (AUTO) 1 % (0-1); EOSINOPHILS % (AUTO) 1 % (1-7); LYMPHOCYTES % (AUTO) 29 % (22-44); MEAN CORPUSCULAR HEMOGLOBIN 28.8 pg (27.5-34.5); MEAN CORPUSCULAR HGB CONC 33.5 g/dL (33.2-36.2); MEAN PLATELET VOLUME 6.8 fL (7.4-10.4); MONOCYTES % (AUTO) 10 % (2-9); NEUTROPHILS % (AUTO) 60 % (42-75); PLATELET COUNT 318 x10^3/uL (130-400); RED BLOOD COUNT 4.38 x10^6/uL (4.38-5.82); RED CELL DISTRIBUTION WIDTH 16.1 % (9.4-14.8)
--- NOTE | 2021-06-09 17:46 | NUR ---
PT CLEARED BY PSYCH LAW MELO AND ERMJanes LAW. PT EDUCATED ON POC AND VERBALIZED UNDERSTANDING. PT BELONGINGS RETURNED, [employer] TAKING PT AT THIS TIME, HANNAH.
== END 2021-06-09 17:50 | disposition home or self-care (01) ==
LOC: ED 15:58
DX: F43.0 Acute stress reaction (principal); Z13.89 Encounter for screening for other disorder; I10 Essential (primary) hypertension; E11.65 Type 2 diabetes mellitus with hyperglycemia; E78.5 Hyperlipidemia, unspecified; E78.00 Pure hypercholesterolemia, unspecified; I25.10 Atherosclerotic heart disease of native coronary artery without angina pectoris; J45.909 Unspecified asthma, uncomplicated; E11.40 Type 2 diabetes mellitus with diabetic neuropathy, unspecified; Z86.73 Personal history of transient ischemic attack (TIA), and cerebral infarction without residual deficits
CPT/HCPCS: 36415; 80053; 80299; 80307; 80320; 80329; 85025; 99283; G0480

== ENCOUNTER 2021-06-10 14:57 | Emergency (ER) | payer MEDICAID, MEDICARE ==
[~2021-06-10] VITALS: Ht 180.3 cm; Wt 65.9 kg
[2021-06-10 15:07] VITALS: BP 157/85
--- NOTE | 2021-06-10 15:13 | NUR ---
JAMIN RN: ALEX BANERJEE FOR MED CLEARANCE FROM [facility]. PT IS ON A LEGAL HOLD FROM [facility]. PT PT DENIES SI, HI. EMS REPORTS PT HAS HAD SOME N/V. PT HAS SEEN DR REINA AND DENIES SI. PT REPORTS HE WANTS A RIDE BACK TO THE [facility]IOR LIVING. PT IS REFUSING TO PUT THE GOWN ON. DR REINA AWARE, PROVIDER HAS OKAYED FOR PT TO STAY IN CLOTHES. MAINTENANCE DEPARTMENT TECHNICIAN AWRAE. HARRY, HAND SPRAYER AWARE OF PATIENT. VS STABLE. HOME WHEELCHAIR AT BEDSIDE. CALL LIGHT IN PLACE. REPORT GIVEN TO NEGRA MEJIAS
--- NOTE | 2021-06-10 15:28 | NUR ---
JAMIN RN: PT SEEN BY HARRY DUMP TRUCK OPERATOR. PT DENIES SI, HI. HOLD LIFTED. PT GIVEN A TAXI VOUCHER BY THE NAILING MACHINE OPERATOR AUTOMATIC. VS STABLE. PT TO BE DISCHARGED. WHEELCHAIR CAB CALLED. PT DENIES N/V PT REPORTS HE IS ON A SOFT DIET. PT GIVEN JELLO, PUDDING AND APPLE SAUCE TO GO. PT IS A&O X4 AND IS ABLE TO SAFELY TRANFER TO WHEELCHAIR. PT READY FOR DC.
--- NOTE | 2021-06-10 15:40 | NUR ---
REPORT FROM DONOVAN OMER. PT OK FOR D/C. NEEDS W/C TAXI HOME.
--- NOTE | 2021-06-10 16:04 | NUR ---
PT D/C'D PER ORDERS. TAXI CALLED, PT AWAITING METALIZING MACHINE OPERATOR FROM FRONT LOBBY, VOUCHER GIVEN.
== END 2021-06-10 16:25 | disposition home or self-care (01) ==
LOC: ED 16:00
DX: R45.851 Suicidal ideations (principal); E11.9 Type 2 diabetes mellitus without complications
CPT/HCPCS: 99285